=== PATIENT | male | born 1950 | race Caucasian/White ===

== ENCOUNTER 2018-05-12 09:03 | Day surgery (SDC) | payer MEDICARE ==
--- NOTE | 2018-04-24 15:04 | NUR ---
ON CHART REVIEW NOTED ABNORMAL EKG, AFIB WITH RVR. CONTACTED PT, PT STATES HE STOPPED COUMDAIN ON 04/20/2018 BUT DID NOT START LOVENOX STATED IN THE PLAN SENT OVER BY DR. SCHNEIDER. SPOKE WITH BECCA, INSULATOR TECHNICIAN PT CASE CANCELLED. DR. VANEGAS NOTIFIED, AGREED. PT NOTIFIED THAT CASE IS CANCELLED AND TO F/U WITH DR. GONSALES AND DR. SCHNEIDER.
[~2018-05-12] VITALS: Ht 172.7 cm; Wt 98.9 kg
--- NOTE | ~2018-05-12 | OR ---
[facility] [place] [facility] [address] [place], [place] [address] Draft DATE OF OPERATION: 05/12/2018 SURGEON: Bailey Stevenson MD PREOPERATIVE DIAGNOSIS: Right hydrocele. POSTOPERATIVE DIAGNOSIS: Right hydrocele. NAMES OF PROCEDURES: Right hydrocelectomy. ANESTHESIA: General with 10 mL of 0.25% lidocaine injection. DRAINS: None. SPECIMENS: Right hydrocele sac was sent to pathology for evaluation. ESTIMATED BLOOD LOSS: Minimal. COMPLICATIONS: None. INDICATIONS FOR PROCEDURE: Mr. Stephenson is a very pleasant 67-year-old gentleman, who presented to my Clinic a couple of months ago with complaints of progressively and enlarging swelling of the testicle. He was referred to me by Dr. Adilene Schneider after she ordered a testicular ultrasound, which did reveal the presence of a 6 x 7 cm simple right hydrocele. At the clinic visit, the patient requested surgical correction of the swelling. After discussion of the risks and benefits of the procedure including the risk of hemorrhage and damage to the surrounding structures, the patient agreed to proceed with the elective right hydrocelectomy. OPERATIVE FINDINGS: 1. On visual inspection of the external genitalia, the patient has a circumcised phallus PATIENT NAME: MARIBELL STEPHENSON OPERATIVE REPORT DATE OF : 52 REPORT #: [id number] PHYSICIAN: BAILEY STEVENSON MD PCP: ADILENE SCHNEIDER MD REPORT IS CONFIDENTIAL AND NOT TO BE RELEASED WITHOUT AUTHORIZATION [facility] [address] [place] [address] Draft with a glanular meatus. His testicles are descended bilaterally and are without palpable masses. The right hemiscrotum is enlarged, consistent with the presence of a hydrocele on the right side. 2. The right hydrocele was surgically corrected and a portion of the hydrocele sac was sent to pathology for confirmation. Approximately, 250 mL of straw-colored fluid was drained from the hydrocele sac. The edges of the hydrocele sac were sewn together behind the spermatic cord via the Jaboulay technique. DESCRIPTION OF PROCEDURE: After informed consent was obtained, the patient was taken back to the operating room. He was transferred from [facility] to the operating room table, where general anesthesia was induced. He was placed in the supine position and the genitalia prepped and draped in a sterile fashion. A marker was used to demarcate the median raphae and an approximately 5 cm transverse incision was made using a #15 blade into the right hemiscrotum. The incision was dissected down carefully using #15 blade along with judicious use of electrocautery. I dissected down to the level of the tunica vaginalis. I then manually dissected the tunica vaginalis away from the remaining layers of the dartos and was ultimately able to deliver the right testicle from the right hemiscrotum. Once I was satisfied all the cremasteric fibers had been removed from the tunica vaginalis. I made a small incision in to the tunica vaginalis and using a knife, and then drained the hydrocele fluid from the hydrocele sac. I performed a partial resection of the hydrocele sac, leaving a margin of about 1 to 2 cm. Care was taken not to injure the testicular vessels, epididymis, or ductus deferens. The edge of the hydrocele sac was then oversewn for hemostasis. The edges were sewn together behind the spermatic cord using the Jaboulay technique. All the while judicious use of electrocautery was used to establish and maintain hemostasis. The sac was successfully incised and the edges of the sac were sewn together using a 3-0 Vicryl in a continuous running fashion. Once I was satisfied that hemostasis had been achieved within the testicle and within the dartos fascia, I reinserted the testicle in the appropriate orientation into the right hemiscrotum. I then thoroughly irrigated the right hemiscrotum with sterile saline. With the testicle back into its proper position, I then closed the hemiscrotum in two layers. The dartos layer was closed in a continuous running fashion using 3-0 Vicryl. The superficial skin layer was closed in a simple interrupted fashion using 3-0 chromic. The area was cleaned and dried, and bacitracin was applied along with a dressing and scrotal fluffs/support. The procedure was then terminated. The patient tolerated the procedure well without any complication. He will now be transferred to the postanesthesia care unit in stable condition. DISPOSITION: I discussed the details of today's procedure with Mrs. Stephenson and answered all of her questions. Maribell will be discharged to home later today in stable condition once he recovers in the PACU. He will be sent home today with oral antibiotics for a total of 7 PATIENT NAME: MARIBELL STEPHENSON OPERATIVE REPORT DATE OF : 52 REPORT #: [id number] PHYSICIAN: BAILEY STEVENSON MD PCP: ADILENE SCHNEIDER MD REPORT IS CONFIDENTIAL AND NOT TO BE RELEASED WITHOUT AUTHORIZATION [address] [address] Draft days, along with [facility] 5/325, dispense #20 as needed for pain. He will be scheduled to return to Clinic in approximately 3 weeks for his first postoperative incision check. MD GERRY Marrufo/VINICIUSL /[id number] Copies: ~ PATIENT NAME: MARIBELL STEPHENSNO OPERATIVE REPORT DATE OF : 52 REPORT #: [id number] PHYSICIAN: BAILEY STEVENSON MD PCP: ADILENE SCHNEIDER MD REPORT IS CONFIDENTIAL AND NOT TO BE RELEASED WITHOUT AUTHORIZATION
[~2018-05-12 09:03] MED LIST: ALEVE220 M1; ASPIRIN EC325 MG PO; COUMADIN5 MG PO; METOPROLOL TAR100 MG PO; ROBAXIN-750750 MG PO; TRAMADOL HCL50 MG PO; WARFARIN SODIU2.5 MG PO; ZESTRIL20 MG PO
--- NOTE | 2018-05-12 12:51 | NUR ---
PT IS BACK TO FROM PACU. HE IS REPORTING MIMINAL PAIN IN THE RIGHT TESTICLE. WATER AT THE BEDSIDE TABLE. IS AT THE BEDSIDE. CALL LIGHT IS WITHIN REACH. NO OTHER C/O'S AT THIS TIME. WILL REASSESS WITHIN THE HOUR.
--- NOTE | 2018-05-12 13:07 | NUR ---
05/12/18 1307 Tianna Schmidt 1202 PT ARRIVED IN PACU SLEEPY WITH NO C/O'S. 1227 C/O BACK AND SCORTAL PAIN 4/10. MORPHINE 2MG GIVEN IVP. 1230 OXGYEN REMOVED. SATS 100% ON RA. 1238 PAIN DECREASED TO 3/10. MORPHINE 2MG GIVEN IVP. 1245 PT RESTING. REU.
--- NOTE | 2018-05-12 13:55 | NUR ---
PT HAS BEEN UP WALKING THE HALLS WITH HIS . HE STOPS IN THE RESTROOM AND WAS ABLE TO HAVE A BOWEL MOVEMENT AND URINATE. HE REPORTS HIS PAIN HAS SLIGHTLY INCREASED. HE HAS MET DC CRITERIA AT THIS TIME. DISCUSSING GOING HOME.
--- NOTE | 2018-05-12 14:31 | NUR ---
PT GIVEN DC INSTRUCTIONS AND VERBALIZES UNDERSTANDING. HE IS TAKEN TO VEHICLE IN , HE IS ABLE TO TRANSFER HIMSELF FROM WC TO CAR.
== END 2018-05-12 14:20 | disposition home or self-care (01) ==
LOC: DS 09:03 → OPS 09:03
PROVIDERS: Urology
PROC: 0VB60ZZ Excision of Right Tunica Vaginalis, Open Approach (ICD-10-PCS; principal; 2018-05-12 09:45)
DX: N43.3 Hydrocele, unspecified (principal); Z86.73 Personal history of transient ischemic attack (TIA), and cerebral infarction without residual deficits; Z87.891 Personal history of nicotine dependence; Z79.01 Long term (current) use of anticoagulants; Z79.899 Other long term (current) drug therapy
CPT/HCPCS: J0696; J1100; J2250; J2270; J2405; J3010; J7120

== ENCOUNTER 2020-07-26 07:35 | Day surgery (SDC) | payer MEDICARE ==
[~2020-07-26] VITALS: Ht 172.7 cm; Wt 95.5 kg
--- NOTE | ~2020-07-26 | OR ---
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 POSTOPERATIVE DIAGNOSIS: Mandibular cancer with open wound. PROCEDURE: Debridement, removal of bone and closure of oral mandibular wound. ANESTHESIA: General orotracheal. COMMUNITY SERVICE AIDE: Pierre. 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 He had a primary closure of the anterior mandibular wound. This initially healed well, but subsequently dehisced with exposed mandible and taken to the operating for the above-mentioned procedures. OPERATIVE PROCEDURE AND FINDINGS: After informed consent, the patient was taken to the operating room, placed in supine position where general orotracheal anesthesia was induced. The patient and procedure were verified. Exam of the oral cavity showed exposed mandible from about . The soft tissue had eschar. No obvious carcinoma. The periosteum was elevated off the mandible anteriorly and posteriorly. Mandibular bone was then drilled down to reduce the mandibular superior and inferior dimension. About a cm all across the mandible was removed to allow for tension-free closure. The wound was then closed with the tongue with 4-0 interrupted Vicryl. Minimal bleeding stopped afterwards. Pharynx was suctioned clear of blood secretions. Hemostasis was verified. The patient was then awakened, extubated, transported to the recovery room in good condition. No complications. BLOOD LOSS: Minimal. PATIENT NAME: MARIBELL FERNANDEZ OPERATIVE REPORT DATE OF : 52 REPORT #: [id number] PHYSICIAN: AMADO BOLES MD PCP: SANDRITA SCHNEIDER MD REPORT IS CONFIDENTIAL AND NOT TO BE RELEASED WITHOUT AUTHORIZATION [facility] [address] [place] [id number] [place] SPECIMEN: No specimen. DRAINS: No drains. Amado Boles MD GC/MARISSA /[id number] Copies: ~ PATIENT NAME: MARIBELL FERNANDEZ OPERATIVE REPORT DATE OF : 52 REPORT #: [id number] PHYSICIAN: AMADO BOLES MD PCP: SANDRITA SCHNEIDER MD REPORT IS CONFIDENTIAL AND NOT TO BE RELEASED WITHOUT AUTHORIZATION
[~2020-07-26 07:35] MED LIST changes: +ALEVE220 MG PO; +ASPIRIN325 MG PO; -COUMADIN5 MG PO; +DICLOFENAC35 MG; +KEFLEX500 MG PO; +LASIX20 MG; +PERCOCET 5-3251 EACH PO; +TYLENOL EXTRA500 MG PO; +WARFARIN SODIUM5 MG PO
[2020-07-26] MEDS ORDERED: DILTIAZEM ER60 MG PO (07:54)
[2020-07-26] MEDS ORDERED: CLINDAMYCIN HC300 MG PO (07:54)
--- NOTE | 2020-07-26 10:40 | NUR ---
07/26/20 1040 Anh Vargas 1019 PATIENT ARRIVES TO PACU RESTING WITH EYES CLOSED, OPENS EYES WITH VERBAL STIMULI, MOVES ALL EXTREMITIES, BACK TO SLEEP WHEN NOT STIMULATED. RESP EVEN AND UNLABORED, MASK AT 6 LITERS. 1025 PATIENT AWAKE OFF/ON. RESP EVEN AND UNLABORED, MASK CONTINUED AT 6 LITERS. PATIENT IS HYPERTENSIVE, SYDNIE HYDRAULIC SPINNER AWARE. PATIENT REPORTS TONGUE PAIN 4/10, ORDERS FOR IV TYLENOL. 1030 PATIENT HAS MODERATE AMOUNT OF BRIGHT RED BLOOD IN MOUTH AND ON FACE. FACE CLEANED, PATIENT DRINKING SIPS OF WATER. C/O BEING COLD, WARM BLANKETS AND KHALIDA PAWS ON. RESP EVEN AND UNLABORED, OXYGEN MASK OFF, ROOM AIR SATS >93%. 1035 PATIENT AWAKE. CONTINUES TO C/O TONGUE PAIN. RESP EVEN AND UNLABORED, ROOM AIR SATS >90%. PATIENT'S MOUTH SUCTIONED, MODERATE BRIGHT RED BLOOD NOTED IN MOUTH.
--- NOTE | 2020-07-26 11:21 | NUR ---
1110: PATIENT BACK IN DAY SURGERY ROOM FROM PACU. C/O PAIN 6/10 IN LEFT MOUTH AND TONGUE. DECLINES PAIN MEDICATION AT THIS TIME. BLOODY DRAINAGE SEEN IN MOUTH. PATIENT DENIES SWALLOWING LOTS OF BLOOD. PATIENT DOES NOT THINK THE SURGICAL SITE IS BLEEDING CONTINUOUSLY. IV SITE WNL. VS CHECKED. SCDs ON. CALL LIGHT WITHIN REACH. ICE WATER PLACED AT BEDSIDE.
--- NOTE | 2020-07-26 11:47 | EKG ---
[facility] [address] [facility] [place] [address] \T\ T wave abnormality, consider inferior ischemia ST \T\ T wave abnormality, consider anterolateral ischemia Abnormal ECG When compared with ECG of 30-MAR-2019 09:38, QRS axis shifted left T wave inversion now evident in Anterior leads Confirmed by ISIDORO LOW DO ([id number]) on 07/26/2020 11:47:42 AM Electronically Signed By: ISIDORO LOW DO 07/26/20 1147 PATIENT NAME: MARIBELL FERNANDEZ Electrocardiogram DATE OF : 52 PHYSICIAN: ISIDORO LOW DO REPORT #: [id number] REPORT IS CONFIDENTIAL AND NOT TO BE RELEASED WITHOUT AUTHORIZATION
--- NOTE | 2020-07-26 12:19 | NUR ---
1135: PATIENT ASSISTED OOB AND TO BATHROOM. UNSTEADY GAIT TO AND FROM BATHROOM. VOID WITHOUT DIFFICULTY. SCDs REPLACED. CALL LIGHT WITHIN REACH. 1210: PATIENT GIVEN BROTH PER REQUEST. AT BEDSIDE. CALL LIGHT WITHIN REACH.
--- NOTE | 2020-07-26 12:52 | NUR ---
PATIENT UP TO BATHROOM. GAIT STEADY. PATIENT NOW GETTING DRESSED WITH HELP FROM .
--- NOTE | 2020-07-26 16:09 | NUR ---
1308: PATIENT TOLERATED WATER AND CHICKEN BROTH. DISCHARGE INSTRUCTIONS GIVEN TO PATIENT AND . PATIENT AMBULATED OUT OF DEPARTMENT WITHOUT WAITING FOR WHEELCHAIR OR NURSE. PATIENT WAS TOLD HE WOULD BE TAKEN OUT TO CAR IN A WHEELCHAIR. NURSE CAUGHT UP WITH HIM [facility] DOWN MAIN HALLWAY OF HOSPITAL AND WALKED WITH HIM THE REST OF THE WAY TO HIS RIDE.
== END 2020-07-26 13:08 | disposition home or self-care (01) ==
LOC: OPS 07:35 → DS 07:35 → OPS 10:00
PROVIDERS: ATTEND Otolaryngology
PROC: 0NBT0ZZ Excision of Right Mandible, Open Approach (ICD-10-PCS; 2020-07-26)
PROC: 0NBV0ZZ Excision of Left Mandible, Open Approach (ICD-10-PCS; principal; 2020-07-26 10:00)
DX: C41.1 Malignant neoplasm of mandible (principal); F32.9 Major depressive disorder, single episode, unspecified; I10 Essential (primary) hypertension; I48.20 Chronic atrial fibrillation, unspecified; Z79.01 Long term (current) use of anticoagulants; Z88.8 Allergy status to other drugs, medicaments and biological substances; Z87.891 Personal history of nicotine dependence; Z79.899 Other long term (current) drug therapy
CPT/HCPCS: 93005; 93010; J0131; J0330; J1100; J2001; J2405; J2704; J3010; J7121

== ENCOUNTER 2022-05-08 11:54 | Emergency (ER) | payer MEDICARE ==
[~2022-05-08 11:54] MED LIST changes: +CLINDAMYCIN HC300 MG PO; +DILTIAZEM 24HR120 MG PO; +DILTIAZEM ER60 MG PO; +FUROSEMIDE20 MG PO; +GABAPENTIN300 MG PO
[2022-05-08] MEDS ORDERED: MAG-OXIDE400 MG PO (15:47)
== END 2022-05-08 16:05 | disposition home or self-care (01) ==
LOC: ED 11:54
DX: R29.898 Other symptoms and signs involving the musculoskeletal system (principal); F10.10 Alcohol abuse, uncomplicated; E83.42 Hypomagnesemia; I48.91 Unspecified atrial fibrillation; Z79.01 Long term (current) use of anticoagulants; Z86.73 Personal history of transient ischemic attack (TIA), and cerebral infarction without residual deficits; Z87.891 Personal history of nicotine dependence; Z79.899 Other long term (current) drug therapy
CPT/HCPCS: 36415; 70450; 80053; 80162; 83735; 85025; 85610; 96374; 99285-25; G0480; J3475

== ENCOUNTER 2022-09-06 08:11 | Inpatient (IN) | payer MEDICARE ==
[~2022-09-06] VITALS: Ht 172.7 cm; Wt 98.1 kg
[~2022-09-06 08:11] MED LIST changes: +FUROSEMIDE40 MG PO; +MAG-OXIDE400 MG PO; +POTASSIUM CHLO20 ME2 PO
--- NOTE | 2022-09-06 13:00 | NUR ---
ALANIS ARRIVED TO CCU ROOM 128. PATIENT TRANSFERED VIA SLIDER BOARD WITH 4 RN ASSIST. THIS RN IN TO ADMIT PATIENT WITH CUSTOMS VERIFIER AG TO DO SKIN ASSESSMENT.
--- NOTE | 2022-09-06 14:00 | NUR ---
PATIENT ARRIVED TO CCU WITH MULTIPLE WOUNDS UPON ARRIVAL. PATIENT HAS EXCORIATED BUTTOCKS WITH OPEN WOUNDS PRESENT. WILL PUT IN A WOUND CARE CONSULT. PATIENT HAS SCABS OVER HIS ENTIRE BODY. PATIENTS STATES "HE FALLS ALL THE TIME". PER PATIENTS PATIENT HAS FALLEN 3 TIMES A DAY RECENTLY. PATIENTS FOUND PATIENT ON THE FLOOR AGAIN THIS MORNING AND IS UNAURE HOW LONG HE WAS ON THE FLOOR TODAY. PER PATIENTS SHE IS STRUGLING TO CARE FOR PATIENT HERSELF AT HOME. PATIENTS IS HIS PRIMARY CAREGIVER. ONE SET OF SCABS ON PATIENTS RT HAND/WRIST IS FROM TOUCHING A HEATER AND PATIENT CONTINUES TO PICK AT SCABS. SCABS,SWELLING,REDNESS NOTED ON PATIENTS LEFT ARM. SCABS ON PATIENTS SHINS. SEE PATIETNS CHART FOR IMAGES. SCROTAL EDEMA NOTED. CASE MANAGEMENT NOTIFIED OF PATIENTS STATING SHE FEELS SHE CANT DO ALL HIS CARES FOR HIM. WILL CONTINUE TO CLOSELY MONITOR.
--- NOTE | 2022-09-06 15:20 | NUR ---
Spoke with pt and . answers questions as pt is mentally not clear. states they live in mobile home, it has a ramp. She states difficulty with pt falling and not being able to get out of the home. Pt was scheduled to start HH today, but came to the hospital. states she also thinks she received a call from [email or web address] today, but was unable to take as she came to the hospital with her spouse. She states pt uses a walker, shower chair, and has an ADA toilet. We discussed alcohol use and pt states he drinks 6 beers per day. He also states at one time he was drinking a 5th of mark per day. states she will no longer buy this. Conversation was difficult to follow as stating pt can get out of the home with a walker, but states she cannot take him out or leave him alone. She has her daughter sit with him when she can as he is unable to leave the home. States concern as pt has frequent falls. Pt does not want placement and wants to return to home. states she goes to her [employer]azdanism for food assist. Has used food bank. I encouraged the to call [email or web address] and complete the paper work as they can assist with food boxes, caregivers, and other services. states they will need to come to her, explained I don't believe they will do this. She will need to schedule an appt., find someone to stay with Noe, and go complete the paperwork if she wants their services.
--- NOTE | 2022-09-06 16:00 | NUR ---
THIS RN SPOKE WITH CASE MANAGEMENT AGAIN ABOUT PLAN OF CARE. CASE MANAGEMENT REVIEWED PLANS FOR DISCHARGE WITH PATIENT AND HIS .
--- NOTE | 2022-09-06 16:00 | NUR ---
Spoke with HH, they have pt scheduled to admit on Sat. HH referral was completed. If pt cannot dc on Saturday, they will attempt to admit on Saturday. If pt does not dc by Saturday, They do not have openings until the end of next week.
--- NOTE | 2022-09-06 16:30 | NUR ---
PATIENT RESTING IN BED. PATIENT DENIES ANY NEEDS AT THIS TIME. THIS RN HAS BEEN IN MULTIPLE TIMES TO TALK WITH PATIENT ABOUT PLAN OF CARE. PATIENTS STEPPED OUT FOR A COUPLE HOURS. WILL CONTINUE TO CLOSELY MONITOR.
--- NOTE | 2022-09-06 17:23 | NUR ---
Line drawn around redness on left forearm to watch and measure spreading of possible infection. Very warm to the touch, painful at the elbow. states she thinks he may have hit his elbow when we he fell today.
--- NOTE | 2022-09-06 17:28 | NUR ---
Patient requested toilet, up with walker and no slip socks. Incontinence episode in bed, immeasurable void. Patient cleaned up, barrier cream applied, brief applied, up in chair for dinner. Opened reddened areas noted on scrotum and groin, sensitive to cleaning. Barrier cream applied. Opened reddened areas noted on sacrum down to upper thights, sensitive to cleaning. Barrier cream applied. Continent bowel movement in the toilet, soft and brown.
--- NOTE | 2022-09-06 18:32 | NUR ---
THIS RN IN TO TALK WITH PATIENT AND HIS ABOUT PLAN OF CARE. PATIENT ASKED IF HE WAS GOING TO GET TO GO HOME TONIGHT. EDUCATED PATIENT THAT HE NEEDS TO STAY AND HAVE IV ABX AND WORK WITH PHYSICAL THERAPY TOMORROW. PATIENT AND HIS ARE AGREEABLE TO STAYING AND CONTINUING WITH TREATMENT. PATIENT SITTING UP IN THE CHAIR. PATIENT RING WAS REMOVED AND PATIENTS HAS AVAIABLE. PATIENTS ASSESSMENT COMPLETED AND REMAINS UNCHANGED FROM PRIOR ASSESSMENT. WILL CONTINUE TO CLOSELY MONTIOR.
--- NOTE | 2022-09-06 18:52 | NUR ---
PATIENT UP TO THE BATHROOM WITH 2 PERSON ASSIST. PATIENT ABLE TO FOLLOW COMMANDS. PATIENT IS IMPULSIVE AND TRIES TO WALK VERY QUICKLY. PATIENT IS A HIGH FALL RISK.
--- NOTE | 2022-09-06 20:00 | NUR ---
Bedside report received from outgoing nurse, BRUCE Figueroa. Initial assessment performed with no critical interventions necessary. All vital signs stable with no indication or complaints of pain. Patient's heart rhythm is afib with RVR with rates as high as 155. Nightly meds to be administered early. Patient cleaned with all linens changed. Affected right arm resting on pillows.
--- NOTE | 2022-09-06 22:05 | NUR ---
Patient's oxygen saturation dropping as low as 76 while asleep. 3L supplemental oxygen via nasla cannula applied to patient with improved oxygenation.
--- NOTE | 2022-09-07 | NUR ---
Repeat assessment performed with no acute change since previous assessment unless noted. All vital signs stable with patient still in afib rhythm. No complaints or indications of respiratory distress, fever or pain.
--- NOTE | 2022-09-07 01:30 | NUR ---
ASSISTED PATIENT TO USE URNAL IN BED. PATIENT IS FORGETFUL AND ATTEMPTING TO YELL OUT FOR ASSIST INSTEAD OF USING CALL LIGHT BUT IS EASLY REORIENTED TO THE CALL LIGHT. BED ALARM ACTIVE.
--- NOTE | 2022-09-07 02:00 | NUR ---
Patient watching television and fidgeting with surrounding items. Patient asked for beer and I reminded him that he would receive one with his meals. All vital signs stable.
--- NOTE | 2022-09-07 04:00 | NUR ---
Repeat assessment performed with no acute change since initial assessment unless noted. All vital signs stable with patient remaining in afib rhythm. No indications or complaints of respiratory distress, fever or pain. Will continue to monitor.
--- NOTE | 2022-09-07 06:00 | NUR ---
Patient awake and asking for breakfast and a beer. Dietary notified of patient's request. All vital signs stable with no indications of distress, fever or pain. Comfort measures provided.
--- NOTE | 2022-09-07 06:55 | NUR ---
Patient administered lopressor 5mg IV for heart rate trending above 155. Patient relaxing in bed watching television with no complaints of pain or distress.
--- NOTE | 2022-09-07 07:30 | NUR ---
REPORT RECIVED FROM GROUP LEADER RN. PATIENT RESTING IN BED AT THIS TIME. PATIENT NOTED TO BE PICKING AT SCABS AND UNWRAPPED HIS IV. REMINDED PATIENT TO NOT PICK HIS SCABS AND IV. PATIENT IS ALERT TO SELF AND KNOWS HE IS IN THE HOSPITAL, BUT IS FORGETFUL OF EVENTS, TIME, DATE, AND PLAN OF CARE. WILL REORIENT PATIENT NEEDED. WILL CONTINUE TO CLOSELY MONITOR.
--- NOTE | 2022-09-07 07:45 | EKG ---
[facility] [address] [place] [address] \T\ T wave abnormality, consider inferior ischemia ST \T\ T wave abnormality, consider anterolateral ischemia Abnormal ECG When compared with ECG of 26-JUL-2020 09:25, Sinus rhythm has replaced Atrial fibrillation Vent. rate has increased BY 65 BPM Confirmed by FRANK HAMPTON MD ([id number]) on 09/07/2022 7:44:45 AM Electronically Signed By: FRANK HAMPTON MD 09/07/22 0745 PATIENT NAME: MARIBELL FERNANDEZ Electrocardiogram DATE OF : 52 PHYSICIAN: FRANK HAMPTON MD REPORT #: [id number] REPORT IS CONFIDENTIAL AND NOT TO BE RELEASED WITHOUT AUTHORIZATION
--- NOTE | 2022-09-07 08:50 | NUR ---
PATIENT ASSESSMENT COMPLETED. PATIENT BREATH SOUNDS CLEAR. PATIENT ON 3L OVER NIGHT FOR APNEA EPISODES WITH DECREASE IN SPO2. OXYGEN REMOVED THIS AM NOW THAT PATIENT IS AWAKE AND SPO2 98%. RR- EVEN AND UNLABORED AT 22. BOWEL TONES ACTIVE. PATIENTS LEFT ARM IS LESS SWOLLEN THIS AM. SKIN IS MORE PINK VS RED. WILL CONTINUE TO ELEVATE EXTREMITY AND ENCOURAGE PATIENT TO NOT PICK HIS SCABS. PATIENT HAS MULTIPLE SCABS ALL OVER HIS BODY FROM FALLS AND THEN PICKING THEM. PATIENTS HR REMAINS ELEVATED. ORAL PILLS GIVEN APPROX 1 HOUR AGO. MD AT THE BEDSIDE AND IS AWARE OF PATIENTS HR.PATIENT UP TO THE BATHROOM WITH HR 170. NO NEW ORDERS AT THIS TIME. PATIENT DOES DENIES SOB, DIZZINESS, OR PALPITATIONS. WILL CONTINUE TO CLOSELY MONITOR.
--- NOTE | 2022-09-07 09:31 | NUR ---
Pharmacy in to review medications with patient and his . and patient express knowledge deficit in medication administration. states the order for Gabapentin 300mg tid is not followed, medication is used as a PRN with patient taking 1-3 capsules (300-900mg) at a time depending on how his level of pain. states 1 capsule doesn't help the patient's pain much but 3 capsules makes him "zonked". Patient finished IV antibiotic Rocephin at 0933 and asked why he is taking antibiotics. This student RN reaffirmed the patient was taking antibiotics for the cellulitis in his arm. Patient forgot his arm was sore. Will continue to monitor.
[2022-09-07] MEDS ORDERED: TYLENOL325 MG PO (10:19)
[2022-09-07] MEDS ORDERED: ASPIR-TRIN325 MG PO (10:19)
--- NOTE | 2022-09-07 10:21 | NUR ---
MED REC COMPLETE
--- NOTE | 2022-09-07 11:50 | NUR ---
This RN and student RN Estefania in with patient to shave his face with the electric shaver and then patient in to shower. Patient tolerated well.Linen changed. Patient now resting in the chair waiting for lunch. Will continue to clsoely monitor.
--- NOTE | 2022-09-07 13:17 | NUR ---
THIS RN ASSISTED PATIENT BACK TO BED AFTER LUNCH. PATIENT ATE WELL. PATIENTS AT THE BEDSIDE. PATIENT NOW RESTING AT THIS TIME. CURTAIN OPEN FOR PATIENTS SAFETY. WILL CONTINUE TO CLOSELY MONITOR.
--- NOTE | 2022-09-07 14:52 | NUR ---
CODY FROM [facility] CALLED TO STATE THAT IF PATIENT IS NOT DISCHARGED EARLY SATURDAY MORNING AND CAN NOT MAKE THE SATURDAY MORNING ADMIT, THE NEXT ADMIT WILL BE SATURDAY. CODY FROM [facility] WOUND LIKE TO BE CALLED SATURDAY WITH A DISCHAGRE UPDATE.
--- NOTE | 2022-09-07 15:30 | NUR ---
PHYSICAL THERAPY IN TO WORK WITH PATIENT. PATIENT TOLERATING WELL. THIS RN GAVE REPORT TO RILEY BARRERA FROM [facility] AT THIS TIME. PATIENT WILL TRANSFER TO ROOM 121. PATIENT UPDATED ON PLAN OF CARE. WILL CONTINUE TO CLOSELY MONITOR.
--- NOTE | 2022-09-07 16:00 | NUR ---
REPORT RECEIVED FROM CCU RN AND PT ARRIVED VIA BED. PT. IS PLEASANT AND ORIENTED TO SELF. MEDS ADMIN. CALL LIGHT IN REACH. ALARM ON
--- NOTE | 2022-09-07 16:05 | NUR ---
THIS RN AND RILEY BARRERA TRANSFERED PATIENT TO [facility] VIA BED. CONFIRMED WITH MD HAMPTON PATIENT MAY HAVE 1-2 BEERS WITH MEALS TO PREVENT PATIENT FROM GOING THROUGH ALCOHOL WITHDRAWLS. UPDATED RILEY BARRERA. NO OTHER QUESTIONS AT THIS TIME.
--- NOTE | 2022-09-07 16:40 | NUR ---
PT. ASKS FOR ASSISTANCE GETTING PT. TO BATHROOM. PT. INSISTS ON URINATING IN BATHROOM. PT. BECAME UNSTEADY SITTING DOWN AND ASSISTED. WHEN AMBULATING TO BED PT. TRIPPED AND ATTEMPTED TO GRAB THIS NURSE. PT. CAUGHT AND ASSISTED BACK TO BED. HE WAS BROUGHT A FWW AND LEFT WITH ALARM ON. CHARGE UPDATED.
--- NOTE | 2022-09-07 16:55 | NUR ---
WOUND CARE CONSULT COMPLETED. PT WITH REDNESS AND EXCORIATION TO BUTTOCK, PICTURE IN CHART. WOUND CLEANSED, CAVILON ADVANCED SKIN BARRIER APPLIED TO ENTIRE WOUND AND REDDENED AREA, SACRAL ALLEVYN AND 2 SQUARE ALLEVYN FOAM DRESSINGS APPLIED TO EXCORIATED AND OPEN AREAS. DISCUSSED WOUND ACRE WITH . PT NOW SITTING ON EDGE OF BED EATING DINNER.
--- NOTE | 2022-09-07 19:38 | NUR ---
RECEIVED REPORT FROM DAY SHIFT RN. PATIENT IS RESTING IN BED WITH EYES CLOSED, RR 16. CALL LIGHT IN REACH. BED ALARM ON FOR SAFETY.
--- NOTE | 2022-09-07 20:21 | NUR ---
PLACED CALL TO MD WITH CONCERN OF ELEVATED HR. NO NEW ORDERS AT THIS TIME.
--- NOTE | 2022-09-07 21:03 | NUR ---
PATIENT ASSESMENT COMPLETED. PATIENT IS AGITATED AND CONFUSED. THIS RN ATTEMPTED TO REORIENT PATIENT. PATIENT REMAINS CONFUSED AT THIS TIME. PATIENTS CIWA IS 5. PATIENTS PM MEDS GIVEN PER ORDER. PATIENT CONTINUES TO HAVE ELEVATED HR, PRN MED GIVEN PER ORDER. PATIENT PROVIDED A BEER PER REQUEST. PATIENTS IVS X2 REDRESSED AND SL PER ORDER. PATIENT GIVEN PRN SLEEP AID PER PATIENT REQUEST. PATIENT DENIES ANY FURTHER NEEDS. CALL LIGHT IN REACH. BED ALARM ON FOR TV. PATIENT PLACED GLASSES ON TO WATCH TV. PATIENT PROVIDED TV REMOTE.
--- NOTE | 2022-09-07 21:45 | NUR ---
PATIENTS BED ALARM ALERTING STAFF. PATIENT ASSISTED TO THE BR A 1PA W/FWWW. PATIENT ABLE TO VOID. PATIENT BACK IN BED RESTING. PATIENT DENIES ANY FURTHER NEEDS. PATIENT REMAINS DISORIENTED. THIS RN ATTEMPTED TO REORIENT. CALL LIGHT IN REACH. BED ALARM ON FOR SAFETY.
--- NOTE | 2022-09-08 00:03 | NUR ---
PATIENT IS RESTING IN BED WITH EYES CLOSED, RR 19. CALL LIGHT IN REACH. BED ALARM ON FOR SAFETY.
--- NOTE | 2022-09-08 02:39 | NUR ---
ASSISTED PATIENT TO THE BR A 1PA W/FWW. PATIENT UNABLE TO VOID. PATIENT HAD SUSTAINED HR OVER 120. PATIENT ALSO REQUESTING A BEER. SPOKE TO MD. MD PLACED ORDER FOR PRN BEER. UPDATED MD ON INCREASED HR, NO NEW ORDERS, PRN MED GIVEN PER EMAR. PATIENT IS RESTING IN BED DRINKING HIS BEER. PATIENT DENIES ANY NEEDS. CALL LIGHT IN REACH. BED ALARM ON FOR SAFETY.
--- NOTE | 2022-09-08 03:15 | NUR ---
PATIENTS BED ALARM ALERTED STAFF. PATIENT ASSISTED TO THE BR A 1PA W/FWW. PATIENT ABLE TO VOID SMALL AMOUNT. PATIENT IS BACK IN BED RESTING. NO FURTHER NEEDS NOTED. CALL LIGHT IN REACH. BED ALARM ON FOR SAFETY.
--- NOTE | 2022-09-08 04:24 | NUR ---
PATIENT IS RESING IN BED WITH EYES CLSOED, RR 17. CALL LIGHT IN REACH. BED ALARM ON FOR SAFETY.
--- NOTE | 2022-09-08 05:34 | NUR ---
LAB PRESENT IN THE ROOM. VITALS TAKEN AND RECORDED. INTAKE AND OUTPUT RECORDED. PATIENT ABLE TO STATE TOWN, HOSPITAL, AND MONTH. PATIENT UNABLE TO STATE YEAR OR TODAYS DATE. PATIENT DENIES ANY NEEDS. CALL LIGHT IN REACH. BED ALARM ON FOR SAFETY.
--- NOTE | 2022-09-08 07:24 | NUR ---
PATIENTS HR SUSTAINED OVER 130. PRN MED GIVEN PER ORDER.
--- NOTE | 2022-09-08 07:30 | NUR ---
RECIEVED SHIFT REPORT. PT USING URINAL AT BEDSIDE WITH BRUCE HOLGUIN. HR IN THE 140'S WHILE AT REST. CALL LIGHT WITHIN REACH. BED ALARM ON
--- NOTE | 2022-09-08 09:00 | NUR ---
MORNING ASSESSMENT COMPLETE. PT SITTING IN RECLINER, AT BEDSIDE. PT IV X2 DC'D DUE TO LEAKING. NEW IV PLACED. ABX HANGING. LEFT ARM REMAINS PINK ADN WARM TO THE TOUCH. MD AT BEDSIDE DISCUSSING POC. DENIES ANY DISCOMFORTS AT THIS TIME. CALL LIGHT WITHIN REACH. CHAIR ALARM ON.
--- NOTE | 2022-09-08 09:30 | NUR ---
AT NURSES STATION STATES PT IS EXPERIENCING PAIN IN THE LEFT ARM. PAIN LEVEL 9/10, PRN PAIN MEDICATION ADMINISTERED (PER EMAR).
--- NOTE | 2022-09-08 10:05 | NUR ---
ABX HANGING AT THIS TIME. PT IN BED RESTING, EYES CLOSED, BREATHING EVEN AND UNLABORED. BED ALARM ON. CALL LIGHT WITHIN REACH
--- NOTE | 2022-09-08 11:21 | NUR ---
PT AMBULATED TO THE BATHROOM, 1PA, FWW W/O DIFFICULTY. IN RECLINER, CHAIR ALARM ON, CALL LIGHT WITHIN REACH
--- NOTE | 2022-09-08 13:25 | NUR ---
PT SITTING IN RECLINER, AT BEDSIDE. DENIES PAIN AT THIS TIME. CALL LIGHT WITHIN REACH. CHAIR ALARM ON
--- NOTE | 2022-09-08 14:03 | NUR ---
PATIENT IN CHAIR AFTER MEAL. VITALS AND I/O'S COMPLETED. CHAIR ALARM ON. CALL LIGHT WITHIN REACH.
--- NOTE | 2022-09-08 14:20 | NUR ---
PT AMBULATED TO THE BATHROOM W/O DIFFICULY 1PA, FWW. THIS RN IN ROOM TO ASSIST
--- NOTE | 2022-09-08 14:45 | NUR ---
AFTERNOON ASSESSMENT COMPLETE. NO NEW CHANGES SINCE MORNING ASSESSMENT. LEFT ARM ELEVATED ON TWO PILLOWS. BED ALARM ON. CALL LIGHT WITHIN REACH.
--- NOTE | 2022-09-08 17:01 | NUR ---
PT REQUESTED TO USE BATHROOM, 1PA, FWW W/O DIFFICULTY. AT BEDSIDE. THIS RN IN ROOM TO ASSIST.
--- NOTE | 2022-09-08 19:00 | NUR ---
ASSUMED CARE OF PT UPON RECEIVING SHIFT REPORT FROM DAY NURSE. PT SITTING UP IN BED, ALERT, ORIENTED X3, NAD. PT C/O H/A. WILL MEDICATE PER MAR, CONTINUE TO MONITOR AND FOLLOW POC.
--- NOTE | 2022-09-09 03:49 | NUR ---
NOTIFIED PROVIDER PT HAS BEEN OLIGURIC WITH FREQUENCY AND URGENCY THIS SHIFT. PT REPORTS NO ABDOMINAL TENDERNESS, NO BLADDER PAIN. I/O CHARTED. ORDERS REC'D. URINE SPECIMEN COLLECTED AND SENT TO LAB. WILL CONTINUE TO MONITOR AND FOLLOW POC.
--- NOTE | 2022-09-09 07:08 | NUR ---
RECIEVED SHIFT REPORT. PT IN RECLINER, AWAKE. LEFT ARM ELEVATED ON TWO PILLOWS. CALL LIGHT WITHIN REACH. BED ALARM ON.
--- NOTE | 2022-09-09 07:35 | NUR ---
RECIEVED SHIFT REPORT. PT RESTING IN BED, EYES CLOSED, BREATHING EVEN AND UNLABORED. O2 IN PLACE. CALL LIGHT WITHIN REACH.
--- NOTE | 2022-09-09 08:20 | NUR ---
MORNING ASSESSMENT COMPLETE. PT IN RECLINER WITH AT BESIDE EATING BREAKFAST. DENIES PAIN. LEFT EXT 3+ EDEMA, BILAT LOWER 2+. DENIES FURTHER NEEDS. CALL LIGHT WITHIN REACH. CHAIR ALARM ON
--- NOTE | 2022-09-09 08:32 | NUR ---
PT IN RECLINER, AT BEDSIDE. ABX HANGING AT THIS TIME. CALL LIGHT WITHIN REACH. CHAIR ALARM ON
--- NOTE | 2022-09-09 11:04 | NUR ---
PT FELT NEED TO USE BATHROOM, BUT ABLE TO VOID. PT IN RECLINER, FEET ELEVATED, LEFT ARM ELEVATED. CALL LIGHT IN REACH. CHAIR ALARM ON
--- NOTE | 2022-09-09 14:44 | NUR ---
PT SITTING IN RECLINER. AND VISITORS AT BEDSIDE. CALL LIGHT WITHIN REACH. CHAIR ALARM ON.
--- NOTE | 2022-09-09 15:00 | NUR ---
AFTERNOON ASSESSMENT COMPLETE. NO NEW CHANGES SINCE MORNING ASSESSMENT. CALL LIGHT WITHIN REACH. ALARM ON.
--- NOTE | 2022-09-09 15:43 | NUR ---
pt in recliner, used restroom was able to void. chair alarm interventional radiology technologist light within reach
--- NOTE | 2022-09-09 16:14 | NUR ---
CHAIR ALARM WENT OFF, PT COULDNT REMEMBER WHY HE STOOD UP. PT LAYING IN BED, BED ALARM ON. CALL LIGHT WITHIN REACH. REORIENTED PT EVALUATION SPECIALIST LIGHT USE
--- NOTE | 2022-09-09 17:05 | NUR ---
WRAPPED PT LEFT ARM WITH MIKE WRAP PER MD ORDER.
--- NOTE | 2022-09-09 17:52 | NUR ---
PT IN BED. VS AND I/OS DONE. BED ALARM ON. CALL LIGHT WITHIN REACH.
--- NOTE | 2022-09-09 21:30 | NUR ---
NOTIFIED PROVIDER THAT PATIENT REMAINS CONFUSED, AND UNABLE TO COMPLY WITH FALL PRECAUTIONS, HAVING VERY FREQUENT EPISODES OF URINARY FREQUENCY, URGENCY AND HESISTANCY, WELL INTERMITTENT INCONTINENCE, USUALLY IN THE FLOOR HE IS ATTEMPTING TO GET TO THE RESTROOM. PT FEELS HE CANNOT EMPTY HIS BLADDER, BUT HAS HAD NO MORE THAN 200ML POST VOID RESIDUAL ON BLADDER SCAN. PT IS ATTEMPTING TO EXIT THE BED TO GO TO THE RESTROOM EVERY 10-15 MINUTES. BED EXIT ALARM IS ACTIVATED, BUT PT IS FREQUENTLY ALREADY SITTING ON THE SIDE OF THE BED TRYING TO GET UP BY THE TIME STAFF ARE ABLE TO ARRIVE TO THE BEDSIDE. PT ATTEMPTS TO GET UP WHETHER HIS WALKER IS AT BEDSIDE OR NOT. PT IS UNSTEADY ON HIS FEET, UNCOORDINATED AT TIMES, FORGETS TO USE WALKER AT TIMES. PT IS WEARING NON-SKID SOCKS. THE INCONTINENT EPISODES PREVENT ACCURATE RECORD OF I/O IN THIS PATIENT WHO IS BEING W/U FOR CHF AND HAS BEEN DIURESING. PT ALSO CURRENTLY HAS OPEN WOUNDS TO BUTTOCKS.IN ADDITION, THIS RN UNABLE TO ADMINISTER ORDERED MEDICATION ON SCHEDULE D/T REPEATED TRIPS TO THE ROOM FOR PATIENT GETTING OUT OF BED AND STAYING WITH PATIENT WHILE PATIENT IS TOILETING, AND CLEANING INCONTINENCE. DRUG SAFETY DATA MANAGEMENT SPECIALIST AND SOIL CONSERVATIONIST AWARE AND ALSO ASSISTING WITH FREQUENT AND CLOSE OBSERVATION. PT ROOM IS DIRECTLY IN FRONT OF NURSE STATION. HAS A H/O FREQUENT FALLS AND IS ON A BLOOD THINNER. REQUESTED PROVIDER ASSESSMENT OF INDICATION FOR NELSON CATHETER INSERTION TO RELIEVE THESE FACTORS INCLUDING FEELINGS OF URINARY URGENCY AND BEING UNABLE TO EMPTY BLADDER. NO ORDER FOR NELSON CATHETER REC'D. NEW MED ORDERS REC'D. WILL MEDICATE PER MAR, CONTINUE CLOSE AND FREQUENT MONITORING AND TOILETING REGIMEN, AND FOLLOW POC.
--- NOTE | 2022-09-09 21:35 | NUR ---
LATE ENTRY: ON PHONE CALL TO PROVIDER AT 2130, NOTIFIED PROVIDER THAT PT HR CONTINUES TO SUSTAIN 120s-140s. NO ORDERS RECEIVED. WILL CONTINUE CLOSE, FREQUENT MONITORING AND FOLLOW POC.
--- NOTE | 2022-09-09 21:55 | NUR ---
MD PLACED NEW ORDER FOR MEDICATION. UNABLE TO GET MEDICATION AT THIS TIME. PLACED CALL TO MD. TO PLACE NEW ORDER.
--- NOTE | 2022-09-10 06:00 | NUR ---
PT SLEPT NO MORE THAN 2 HOURS, SPACED OUT THROUGH THE NIGHT DUE TO URINARY URGENCY AND FREQUENCE. MD AWARE THAT PT IS UNABLE TO VOID MORE OFTEN THAN NOT. WILL ENDORSE TO DAY NURSE FOR CLOSE FREQUENT MONITORING PT IS VERY IMPULSIVE AND CONFUSED AND WILL NOT REMEMBER TO USE CALL CUBA. PT UP TO CHAIR. CHAIR EXIT ALARM IN PLACE, NONSKID SOCKS AND FALLS ARMBAND IN USE. PT BELONGINGS NEARBY. PT WEARING GLASSES AND HEARING AID TO ENHANCE COMMUNICATION.
--- NOTE | 2022-09-10 06:31 | NUR ---
PT WAVING IN ROOM. PT REQ BATHROOM NEEDS. PT ASSISTED UP TO BATHROOM 1 PA FWW. PT BACK TO CHAIR. I SUPERVISOR [employer] NOTICE SKIN ABRASION ON HAND. RN NOTIFIED. NO FURTHER NEEDS. CHAIR ALARM SET. CALL LIGHT WITHIN REACH
--- NOTE | 2022-09-10 06:42 | NUR ---
PT SLEEPING IN CHAIR. CHAIR EXIT ALARM ARMED. VSS, NAD, NO C/O. WILL CONTINUE CLOSE FREQUENT MONITORING AND FOLLOW POC UNTIL SHIFT HANDOFF REPORT WITH DAY NURSE.
--- NOTE | 2022-09-10 07:37 | NUR ---
PT UP IN THE CHAIR WATCHING SPORTS ON TV AT TIME OF SHIFT REPORT. CALL LIGHT IN REACH CHAIR ALARM SET, NEEDED ITEMS IN REACH. PT DENIES NEEDS OF
--- NOTE | 2022-09-10 07:51 | NUR ---
PATIENT SITTING UP IN CHAIR WATCHING TV AT THIS TIME. WHITE BOARD UPDATED. CALL LIGHT IN REACH. CHAIR ALARM ON. NO FURTHER NEEDS AT THIS TIME.
--- NOTE | 2022-09-10 08:57 | NUR ---
OVER TO PATIENT ROOM, MARQUISE NOLAN AT BEDSIDE ASSISTING PATIENT BACK TO BED. AT BEDSIDE. PER PETAR DESK MANAGER PATIENT TO HAVE LIVER US AND ECHO TODAY. WILL FOLLOW UP WITH PATIENT AFTER STUDIES ARE COMPLETE.
[2022-09-10] MEDS ORDERED: TAMSULOSIN HCL0.4 MG PO (10:38)
[2022-09-10] MEDS ORDERED: CEPHALEXIN500 MG PO (10:38)
[2022-09-10] MEDS ORDERED: TROSPIUM CHLORI20 MG PO (10:39)
[2022-09-10] MEDS ORDERED: DILTIAZEM 24HR240 M1 PO (10:40)
== END 2022-09-10 12:20 | disposition home health service (06) | DRG 602 ==
LOC: ED 08:11 → CCU 10:54 → MS 10:54
PROVIDERS: ADMIT Internal Medicine; ATTEND Internal Medicine
DX: L03.114 Cellulitis of left upper limb (principal); J13 Pneumonia due to Streptococcus pneumoniae; E46 Unspecified protein-calorie malnutrition; I48.91 Unspecified atrial fibrillation; F10.20 Alcohol dependence, uncomplicated; N40.0 Benign prostatic hyperplasia without lower urinary tract symptoms; Z20.822 Contact with and (suspected) exposure to COVID-19; G89.29 Other chronic pain; M54.9 Dorsalgia, unspecified; E83.42 Hypomagnesemia; Z68.31 Body mass index [BMI] 31.0-31.9, adult; Z87.891 Personal history of nicotine dependence; Z86.73 Personal history of transient ischemic attack (TIA), and cerebral infarction without residual deficits; Z98.890 Other specified postprocedural states; Z79.01 Long term (current) use of anticoagulants; Z79.899 Other long term (current) drug therapy
CPT/HCPCS: 36415; 51701; 71045; 76705; 80048; 80053; 80076; 81003; 82140; 83605; 83735; 84443; 85025; 85610; 87040; 87502; 93005; 93010; 93306; 94760; 97116; 97162; 97530; 99285-25; A9270; C9803; G0480; J0456; J0696; J3475; J7030; J7060; J7121; U0003

== ENCOUNTER 2022-09-14 22:59 | Emergency (ER) | payer MEDICARE ==
[~2022-09-14] VITALS: Ht 172.7 cm; Wt 98.0 kg
[~2022-09-14 22:59] MED LIST changes: +ASPIR-TRIN325 MG PO; +CEPHALEXIN500 MG PO; +DILTIAZEM 24HR240 M1 PO; +TAMSULOSIN HCL0.4 MG PO; +TROSPIUM CHLORI20 MG PO; +TYLENOL325 MG PO
--- OUTSIDE RECORDS SUMMARY | 2022-09-14 23:02 | XMS ---
PreManage Notification: MARIBELL FERNANDEZ Security Equipment Application Specialist Events No recent Security Events currently on file CRITERIA MET - [facility] - 2 Visits in 30 Days CARE PROVIDERS SANDRITA SCHNEDIER [facility] 10/28/2017-Current PHONE: Unknown Azul has no Care Guidelines for this patient. [place] VISIT COUNT (12 MO.) 3 [facility] TOTAL 3 NOTE: Visits indicate total known visits. ED/C VISIT TRACKING (12 MO.) 09/14/2022 23:00 [facility] [place] TYPE: Emergency COMPLAINT: - SOB 09/06/2022 08:13 [facility] [place] TYPE: Emergency COMPLAINT: - SKIN PROBLEM 05/08/2022 11:55 [facility] [place] TYPE: Emergency COMPLAINT: - FALL DIAGNOSES: - Other jail (current) drug therapy - Personal history of nicotine dependence - senior care (current) use of anticoagulants - Other symptoms and signs involving the musculoskeletal system - Personal history of transient ischemic attack (TIA), and cerebral infarction without residual deficits - Alcohol abuse, uncomplicated - Hypomagnesemia - Unspecified atrial fibrillation INPATIENT VISIT TRACKING (12 MO.) 09/06/2022 10:[address] [facility] [place] TYPE: Medical Surgical COMPLAINT: - ATRIAL FIBRILLATION, CELLULITIS, PNEUMONIA DIAGNOSES: - Contact with and (suspected) exposure to COVID-19 - Personal history of transient ischemic attack (TIA), and cerebral infarction without residual deficits - Body mass index [BMI] 31.0-31.9, adult - Pneumonia due to Streptococcus pneumoniae - Dorsalgia, unspecified - Other termite control technician (current) drug therapy - Unspecified protein-calorie malnutrition - Personal history of nicotine dependence - Other specified postprocedural states - Benign prostatic hyperplasia without lower urinary tract symptoms - Cellulitis of left upper limb - Hypomagnesemia - senior care (current) use of anticoagulants - Other chronic pain - Alcohol dependence, uncomplicated - Unspecified atrial fibrillation [email or web address]
[2022-09-15] MEDS ORDERED: ULTRAM50 MG PO (01:27)
[2022-09-15] MEDS ORDERED: LASIX20 MG PO (01:28)
--- NOTE | 2022-09-16 12:29 | EKG ---
[facility] [address] [place] [address] Signed Atrial fibrillation with slow ventricular response Nonspecific ST and T wave abnormality Abnormal ECG No previous ECGs available Confirmed by Sarai Clark MD () on 09/16/2022 12:28:56 PM Electronically Signed By: SARAI CLARK MD 09/16/22 1229 PATIENT NAME: MARIBELL FERNANDEZ Electrocardiogram DATE OF : 52 PHYSICIAN: SARAI CLARK MD REPORT #: [id number] REPORT IS CONFIDENTIAL AND NOT TO BE RELEASED WITHOUT AUTHORIZATION
== END 2022-09-15 01:45 | disposition home or self-care (01) ==
LOC: ED 22:59
DX: S22.42XA Multiple fractures of ribs, left side, initial encounter for closed fracture (principal); E87.5 Hyperkalemia; R60.0 Localized edema; I48.91 Unspecified atrial fibrillation; Z86.73 Personal history of transient ischemic attack (TIA), and cerebral infarction without residual deficits; Z87.891 Personal history of nicotine dependence; Z79.899 Other long term (current) drug therapy; Z79.01 Long term (current) use of anticoagulants; Z79.82 Long term (current) use of aspirin; W19.XXXA Unspecified fall, initial encounter
CPT/HCPCS: 36415; 70450; 71250; 72125; 80053; 83880; 85025; 85610; 93005; 93010; 94640; 96374; 96375; 99284-25; A9270; J0610; J1940; J2405

== ENCOUNTER 2022-12-13 16:04 | Emergency (ER) | payer MEDICARE, OTHER ==
[~2022-12-13] VITALS: Ht 172.7 cm; Wt 99.7 kg
[~2022-12-13 16:04] MED LIST changes: +CEFPODOXIME PR200 MG PO; +LASIX20 MG PO; +METOPROLOL SUC100 MG PO; +ULTRAM50 MG PO
--- OUTSIDE RECORDS SUMMARY | 2022-12-13 16:06 | XMS ---
PreManage Notification: MARIBELL FERNANDEZ Security Legal Billing Analyst Events No recent Security Events currently on file CRITERIA MET - [facility] - 2 Visits in 30 Days CARE PROVIDERS -[place]- Dentist: Traveling Inventory Associate [facility] PHONE: [phone] SANDRITA SCHNEIDER [facility] 10/28/2017-Current PHONE: Unknown Azul has no Care Guidelines for this patient. [place] VISIT COUNT (12 MO.) [address] [place] [address] TOTAL 6 NOTE: Visits indicate total known visits. ED/UCC VISIT TRACKING (12 MO.) 12/13/2022 16:05 [facility] TYPE: Emergency COMPLAINT: - WEAKNESS 12/07/2022 20:03 [facility] TYPE: Emergency COMPLAINT: - WEAKNESS 11/14/2022 02:05 [facility] TYPE: Emergency COMPLAINT: - WEAKNESS,SOB 09/14/2022 23:00 [facility] TYPE: Emergency COMPLAINT: - SOB DIAGNOSES: - Hyperkalemia - Localized edema - custodial (current) use of anticoagulants - custodial (current) use of aspirin - Multiple fractures of ribs, left side, initial encounter for closed fracture - Other intermediate manager (current) drug therapy - Personal history of nicotine dependence - Personal history of transient ischemic attack (TIA), and cerebral infarction without residual deficits - Shortness of breath - Unspecified atrial fibrillation - Unspecified fall, initial encounter 09/06/2022 08:13 [facility] TYPE: Emergency COMPLAINT: - SKIN PROBLEM 05/08/2022 11:55 [facility] TYPE: Emergency COMPLAINT: - FALL DIAGNOSES: - Alcohol abuse, uncomplicated - Hypomagnesemia - custodial (current) use of anticoagulants - Other intermediate manager (current) drug therapy - Other symptoms and signs involving the musculoskeletal system - Personal history of nicotine dependence - Personal history of transient ischemic attack (TIA), and cerebral infarction without residual deficits - Unspecified atrial fibrillation INPATIENT VISIT TRACKING (12 MO.) 12/07/2022 20:04 [facility] [place] TYPE: Observation COMPLAINT: - GENERALIZED WEAKNESS,ACUTE URINARY RETENTION,CHF 11/14/2022 02:06 [facility] TYPE: Observation COMPLAINT: - CHF EXAC,PNEUMONIA,ANACARCA,CHRONIC AFIB,ANTICOAG DIAGNOSES: - Acute respiratory failure with hypoxia - Alcohol use, unspecified, uncomplicated - Chronic atrial fibrillation, unspecified - Contact with and (suspected) exposure to COVID-19 - Heart failure, unspecified - Hypo-osmolality and hyponatremia - Hypomagnesemia - jaundice, unspecified - Pneumonia, unspecified organism - Presence of alcohol in blood, level not specified 09/06/2022 10:54 [facility] [place] TYPE: Medical Surgical COMPLAINT: - ATRIAL FIBRILLATION, CELLULITIS, PNEUMONIA DIAGNOSES: - Alcohol dependence, uncomplicated - Alcohol dependence, uncomplicated - Benign prostatic hyperplasia without lower urinary tract symptoms - Benign prostatic hyperplasia without lower urinary tract symptoms - Body mass index [BMI] 31.0-31.9, adult - Body mass index [BMI] 31.0-31.9, adult - Cellulitis of left upper limb - Contact with and (suspected) exposure to COVID-19 - Contact with and (suspected) exposure to COVID-19 - Dorsalgia, unspecified - Dorsalgia, unspecified - Hypomagnesemia - Hypomagnesemia - equipment operator intermodal yard (current) use of anticoagulants - equipment operator intermodal yard (current) use of anticoagulants - Other chronic pain - Other chronic pain - Other intermediate manager (current) drug therapy - Other detention (current) drug therapy - Other specified postprocedural states - Other specified postprocedural states - Personal history of nicotine dependence - Personal history of nicotine dependence - Personal history of transient ischemic attack (TIA), and cerebral infarction without residual deficits - Personal history of transient ischemic attack (TIA), and cerebral infarction without residual deficits - Pneumonia due to Streptococcus pneumoniae - Pneumonia due to Streptococcus pneumoniae - Unspecified atrial fibrillation - Unspecified atrial fibrillation - Unspecified protein-calorie malnutrition - Unspecified protein-calorie malnutrition [email or web address]
[2022-12-13] MEDS ORDERED: MAGNESIUM400 MG PO (16:20)
[2022-12-14 15:43] VITALS: BP 134/79
--- NOTE | 2022-12-15 21:56 | EKG ---
[facility] [address] [place] [address] Signed Atrial fibrillation Rightward axis Anterior infarct , age undetermined ST \T\ T wave abnormality, consider lateral ischemia Abnormal ECG When compared with ECG of 07-DEC-2022 20:40, Anterior infarct is now present Confirmed by Sarai Clark MD () on 12/15/2022 9:56:31 PM Electronically Signed By: SARAI CLARK MD 12/15/22 2156 PATIENT NAME: MARIBELL FERNANDEZ Electrocardiogram DATE OF : 52 PHYSICIAN: SARAI CLARK MD REPORT #: [id number] REPORT IS CONFIDENTIAL AND NOT TO BE RELEASED WITHOUT AUTHORIZATION
== END 2022-12-14 15:43 | disposition home or self-care (01) ==
LOC: ED 16:04
DX: R53.1 Weakness (principal); I48.91 Unspecified atrial fibrillation; Z87.891 Personal history of nicotine dependence; Z79.899 Other long term (current) drug therapy; Z79.01 Long term (current) use of anticoagulants
CPT/HCPCS: 36415; 71045; 80053; 81001; 83735; 84484; 85025; 85610; 93005; 93010; 97162; 99285-25; G0480

== ENCOUNTER 2022-12-28 06:58 | Emergency (ER) | payer MEDICARE, OTHER ==
[~2022-12-28] VITALS: Ht 172.7 cm; Wt 99.3 kg
[~2022-12-28 06:58] MED LIST changes: +MAGNESIUM400 MG PO
--- OUTSIDE RECORDS SUMMARY | 2022-12-28 07:01 | XMS ---
PreManage Notification: MARIBELL FERNANDEZ Security Lsw Events No recent Security Events currently on file CRITERIA MET - 6 ED Visits in 6 Months - [facility] - 2 Visits in 30 Days CARE PROVIDERS -[place]- Dentist: [facility] PHONE: [phone] SANDRITA SCHNEIDER [facility] 10/28/2017-Current PHONE: Unknown Azul has no Care Guidelines for this patient. [place] VISIT COUNT (12 MO.) [address] [place] [address] TOTAL 8 NOTE: Visits indicate total known visits. ED/UCC VISIT TRACKING (12 MO.) 12/28/2022 06:[address] [facility] [place] TYPE: Emergency COMPLAINT: - FAILURE TO THRIVE 12/25/2022 09:43 [facility] TYPE: Emergency COMPLAINT: - DISCOMFORT DIAGNOSES: - Constipation, unspecified - intermediate teacher (current) use of anticoagulants - [facility] (current) use of aspirin - Other [facility] (current) drug therapy - Personal history of nicotine dependence - Personal history of transient ischemic attack (TIA), and cerebral infarction without residual deficits - Weakness 12/13/2022 16:05 [facility] [place] TYPE: Emergency COMPLAINT: - WEAKNESS DIAGNOSES: - intermediate teacher (current) use of anticoagulants - Other superintendent marine oil terminal (current) drug therapy - Personal history of nicotine dependence - Unspecified atrial fibrillation - Weakness 12/07/2022 20:03 [facility] [place] TYPE: Emergency COMPLAINT: - WEAKNESS 11/14/2022 02:05 [facility] TYPE: Emergency COMPLAINT: - WEAKNESS,SOB 09/14/2022 23:00 [facility] TYPE: Emergency COMPLAINT: - SOB DIAGNOSES: - Hyperkalemia - Localized edema - [facility] (current) use of anticoagulants - intermediate teacher (current) use of aspirin - Multiple fractures of ribs, left side, initial encounter for closed fracture - Other [facility] (current) drug therapy - Personal history of [...] - Alcohol abuse, uncomplicated - Hypomagnesemia - intermediate teacher (current) use of anticoagulants - Other superintendent marine oil terminal (current) drug therapy - Other symptoms and signs involving the musculoskeletal system - Personal history of nicotine dependence - Personal history of transient ischemic attack (TIA), and cerebral infarction without residual deficits - Unspecified atrial fibrillation INPATIENT VISIT TRACKING (12 MO.) 12/07/2022 20:04 [facility] [place] TYPE: Observation COMPLAINT: - GENERALIZED WEAKNESS,ACUTE URINARY RETENTION,CHF DIAGNOSES: - Alcohol dependence, uncomplicated - Benign prostatic hyperplasia with lower urinary tract symptoms - Chronic diastolic (congestive) heart failure - Contact with and (suspected) exposure to COVID-19 - Mild cognitive impairment of uncertain or unknown etiology - Other retention of urine - Spinal stenosis, lumbar region with neurogenic claudication - Unspecified atrial fibrillation 11/14/2022 02:06 [facility] [place] TYPE: Observation [...] Dorsalgia, unspecified - Hypomagnesemia - Hypomagnesemia - intermediate teacher (current) use of anticoagulants - intermediate teacher (current) use of anticoagulants - Other chronic pain - Other chronic pain - Other superintendent marine oil terminal (current) drug therapy - Other superintendent marine oil terminal (current) drug therapy - Other specified postprocedural [...] Unspecified protein-calorie malnutrition - Unspecified protein-calorie malnutrition [email or web address]
[2022-12-28 10:45] VITALS: BP 112/75
--- NOTE | 2022-12-28 19:55 | EKG ---
[facility] [address] [facility] [place] [address] Signed Atrial fibrillation with rapid ventricular response ST \T\ T wave abnormality, consider inferior ischemia ST \T\ T wave abnormality, consider anterolateral ischemia Abnormal ECG When compared with ECG of 13-DEC-2022 16:58, Criteria for Anterior infarct are no longer present Confirmed by Sarai Clark MD () on 12/28/2022 7:55:04 PM Electronically Signed By: SARAI CLARK MD 12/28/221954 PATIENT NAME: MARIBELL FERNANDEZ Electrocardiogram DATE OF : 52 PHYSICIAN: SARAI CLARK MD REPORT #: [id number] REPORT IS CONFIDENTIAL AND NOT TO BE RELEASED WITHOUT AUTHORIZATION
== END 2022-12-28 10:45 | disposition home or self-care (01) ==
LOC: ED 06:58
DX: R53.1 Weakness (principal); I48.91 Unspecified atrial fibrillation; Z87.891 Personal history of nicotine dependence; Z79.899 Other long term (current) drug therapy; Z79.01 Long term (current) use of anticoagulants
CPT/HCPCS: 36415; 80053; 85025; 85610; 93005; 93010; 99285-25; G0480

== ENCOUNTER 2022-12-30 14:05 | Emergency (ER) | payer MEDICARE, OTHER ==
[~2022-12-30] VITALS: Ht 172.7 cm; Wt 99.7 kg
--- OUTSIDE RECORDS SUMMARY | 2022-12-30 14:07 | XMS ---
PreManage Notification: MARIBELL FERNANDEZ Security Vice President Medical Affairs Events No recent Security Events currently on file CRITERIA MET - 6 ED Visits in 6 Months - [facility] - 2 Visits in 30 Days CARE PROVIDERS -Bernardo- Dentist: Securities Sales Associate [facility] PHONE: [phone] SANDRITA SCHNEIDER [facility] 10/28/2017-Current PHONE: Unknown Azul has no Care Guidelines for this patient. Genaro VISIT COUNT (12 MO.) [address] [place] [address] TOTAL 9 NOTE: Visits indicate total known visits. ED/UCC VISIT TRACKING (12 MO.) 12/30/2022 14:05 [facility] [place] TYPE: Emergency COMPLAINT: - URINE PROBLEM 12/28/2022 06:59 [facility] [place] TYPE: Emergency COMPLAINT: - FAILURE TO THRIVE 12/25/2022 09:43 [facility] [place] TYPE: Emergency COMPLAINT: - DISCOMFORT DIAGNOSES: - Constipation, unspecified - intermediate (current) use of anticoagulants - intermediate frame tender (current) use of aspirin - Other chcf (current) drug therapy - Personal history of nicotine dependence - Personal history of transient ischemic attack (TIA), and cerebral infarction without residual deficits - Weakness 12/13/2022 16:05 [facility] [place] TYPE: Emergency COMPLAINT: - WEAKNESS DIAGNOSES: - intermediate (current) use of anticoagulants - Other intermediate frame tender (current) drug therapy - Personal history of nicotine dependence - Unspecified atrial fibrillation - Weakness 12/07/2022 20:03 [facility] [place] TYPE: Emergency COMPLAINT: - WEAKNESS 11/14/2022 02:05 [facility] [place] TYPE: Emergency COMPLAINT: - WEAKNESS,SOB 09/14/2022 23:00 [facility] [place] TYPE: Emergency COMPLAINT: - SOB DIAGNOSES: - Hyperkalemia - Localized edema - intermediate frame tender (current) use of anticoagulants - intermediate (current) use of aspirin - Multiple fractures of ribs, left side, initial encounter for closed fracture - Other chcf (current) drug therapy - Personal history of [...] Alcohol abuse, uncomplicated - Hypomagnesemia - intermediate frame tender (current) use of anticoagulants - Other chcf (current) drug therapy - Other symptoms and [...] in blood, level not specified 09/06[facility]2022 10:[facility] [place] [facility] COMPLAINT: - [...] unspecified - Hypomagnesemia - Hypomagnesemia - intermediate frame tender (current) use of anticoagulants - intermediate frame tender (current) use of anticoagulants - Other chronic pain - Other chronic pain - Other intermediate frame tender (current) drug therapy - Other chcf (current) drug therapy - Other specified postprocedural [...] Unspecified protein-calorie malnutrition - Unspecified protein-calorie malnutrition [email or web address]
[2022-12-30 16:10] VITALS: BP 106/66
== END 2022-12-30 16:05 | disposition home or self-care (01) ==
LOC: ED 14:05
DX: R31.9 Hematuria, unspecified (principal); Z86.73 Personal history of transient ischemic attack (TIA), and cerebral infarction without residual deficits; Z87.891 Personal history of nicotine dependence; Z79.899 Other long term (current) drug therapy; Z79.01 Long term (current) use of anticoagulants; Z79.82 Long term (current) use of aspirin
CPT/HCPCS: 51702; 81001; 87088; 99283-25

== ENCOUNTER 2023-05-12 15:19 | Inpatient (IN) | payer MEDICARE, OTHER ==
[~2023-05-12] VITALS: Ht 172.7 cm; Wt 90.0 kg
--- OUTSIDE RECORDS SUMMARY | ~2023-05-12 | XMS | Continuity of Care Document ---
Demographics + + + | Address | [address] | | | [place] [address] | + + + | Preferred Language | Unknown | + + + | Marital Status | | + + + | Gnosticism Affiliation | Unknown | + + + | Race | White | + + + | Ethnic Group | Not or | + + + Author + + + | Author | [facility] | + + + | Organization | [facility] | + + + | Address | [address] | | | [place], [place] [address] | + + + | Phone | | + + + Care Team Providers + + + + | Care Metal Solderer Name | Role | Phone | + + + + Unavailable | Unavailable | + + + + Allergies No information. Encounters No information. Functional Status No information. Immunizations No information. Medications No information. Problems + + + + | date | description | facility | + + + + | 2023-04-04 07:36 | OTHER SPECIFIED | [facility] | | | DEGENERATIVE DISEASES OF | | | | NERVOUS S | | + + + + | 2023-04-04 07:36 | OTHER SPECIFIED DISEASES | [facility] | | | OF SPINAL CORD | | + + + + | 2023-04-04 07:36 | FUSION OF SPINE, CERVICAL | [facility] | | | REGION | | + + + + | 2023-04-04 07:36 | SPONDYLOSIS W/O MYELOPATHY | [facility] | | | OR RADICULOPATHY, CERVI | | + + + + | 2023-04-04 07:36 | SPONDYLOSIS W/O MYELOPATHY | [facility] | | | OR RADICULOPATHY, THORA | | + + + + | 2023-04-04 07:36 | SPINAL STENOSIS, CERVICAL | [facility] | | | REGION | | + + + + | 2023-04-04 07:36 | SPINAL STENOSIS, THORACIC | [facility] | | | REGION | | + + + + | 2023-04-04 07:36 | 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, HIGH CERVICAL | | | | RE | | + + + + | 2023-04-04 07:36 | 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 | | | | | | + + + + | 2023-04-04 07:36 | 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, THORACIC R | | + + + + | 2023-04-04 07:36 | OTH SYMPTOMS AND SIGNS | [facility] | | | INVOLVING THE MUS | | + + + + | 2023-04-04 07:36 | OTH SYMPTOMS AND SIGNS | [facility] | | | INVOLVING THE | | | | MUSCULOSKELETAL SYSTEM | | + + + + | 2023-04-04 07:36 | WHITE MATTER DISEASE, | [facility] | | | UNSPECIFIED | | + + + + | 2023-04-04 08:00 | OTH SYMPTOMS AND SIGNS | [facility] | | | INVOLVING THE MUS | | + + + + | 2023-04-05 07:33 | SPINAL STENOSIS, LUMBAR | [facility] | | | REGION WITHOUT NEUROGENIC | | + + + + | 2023-04-05 07:33 | 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, LUMBAR REG | | + + + + | 2023-04-05 07:33 | OTH SYMPTOMS AND SIGNS | [facility] | | | INVOLVING THE MUS | | + + + + | 2023-04-05 07:33 | OTH SYMPTOMS AND SIGNS | [facility] | | | INVOLVING THE | | | | MUSCULOSKELETAL SYSTEM | | + + + + | 2023-04-05 07:33 | OTHER SPECIFIED | [facility] | | | POSTPROCEDURAL STATES | | + + + + | 2023-04-05 08:00 | OTH SYMPTOMS AND SIGNS | [facility] | | | INVOLVING THE MUS | | + + + + | 2023-04-12 12:33 | OTHER DISORDER OF | [facility] | | | CIRCULATORY SYSTEM | | + + + + | 2023-04-12 12:33 | OTH SYMPTOMS AND SIGNS | [facility] | | | INVOLVING THE MUS | | + + + + | 2023-04-12 12:33 | OTH SYMPTOMS AND SIGNS | [facility] | | | INVOLVING THE | | | | MUSCULOSKELETAL SYSTEM | | + + + + | 2023-04-12 15:00 | OTH SYMPTOMS AND SIGNS | [facility] | | | INVOLVING THE MUS | | + + + + Procedures No information. Results/Labs No information. Social History +--------+ + + | date | description | facility | +--------+ + + Vital Signs No information."
--- OUTSIDE RECORDS SUMMARY | ~2023-05-12 | XMS | Continuity of Care Document ---
Demographics + + + | Address | [address] | | | [place] [address] | + + + | Preferred Language | Unknown | + + + | Marital Status | | + + + | Hoahaoism Affiliation | Unknown | + + + | Race | White | + + + | Ethnic Group | Not or | + + + Author + + + | Author | [facility] | + + + | Organization | [facility] | + + + | Address | [address] | | | [place], [place] [address] | + + + | Phone | | + + + Care Team Providers + + + + | Care Actuarial Director Name | Role | Phone | + [...]
--- OUTSIDE RECORDS SUMMARY | 2023-05-12 15:23 | XMS ---
PreManage Notification: MARIBELL FERNANDEZ Security Trauma Surgeon Events No recent Security Events currently on file CRITERIA MET - 6 ED Visits in 6 Months - [facility] CARE PROVIDERS Mary Zhang Surveying Technician/Seed Specialist 01/10/2023-Current PHONE: [phone] SANDRITA SCHNEIDER [facility] 10/28/2017-Current PHONE: Unknown -Bernardo- Dentist: Cane Burner [facility] PHONE: [phone] JAMIE SAEZ Nurse Practitioner: Family Current PH[facility]: [phone] [facility] Current PHONE: Unknown Azul has no Care Guidelines for this patient. Genaro VISIT COUNT (12 MO.) 11 TAYA D[facility]az TOTAL 11 NOTE: Visits indicate total known visits. ED/UCC VISIT TRACKING (12 MO.) 05/12/2023 15:19 [facility] [place] TYPE: Emergency 01/06/2023 12:33 [facility] TYPE: Emergency COMPLAINT: - HEMATURIA DIAGNOSES: - Chronic atrial fibrillation, unspecified - Fall on same level, unspecified, initial encounter - Hematuria, unspecified - detention (current) use of anticoagulants - detention (current) use of aspirin - Other longterm (current) drug therapy - Personal history of nicotine dependence - Urinary tract infection, site not specified 01/02/2023 10:27 [facility] [place] TYPE: Emergency COMPLAINT: - FALL DIAGNOSES: - Encounter for examination and observation following other accident - predatory animal exterminator (current) use of anticoagulants - Other fall from one level to another, initial encounter - Other longterm (current) drug therapy - Personal history of nicotine dependence - Personal history of transient ischemic attack (TIA), and cerebral infarction without residual deficits - Pressure ulcer of left buttock, unspecified stage - Pressure ulcer of right buttock, unspecified stage 12/30/2022 14:05 [facility] [place] TYPE: Emergency COMPLAINT: - URINE PROBLEM DIAGNOSES: - Hematuria, unspecified - detention (current) use of anticoagulants - predatory animal exterminator (current) use of aspirin - Other termite exterminator (current) drug therapy - Personal history of nicotine dependence - Personal history of transient ischemic attack (TIA), and cerebral infarction without residual deficits 12/28/2022 06:59 [facility] [place] TYPE: Emergency COMPLAINT: - FAILURE TO THRIVE DIAGNOSES: - detention (current) use of anticoagulants - Other termite exterminator (current) drug therapy - Personal history of nicotine dependence - Unspecified atrial fibrillation - Weakness 12/25/2022 09:43 [facility] [place] TYPE: Emergency COMPLAINT: - DISCOMFORT DIAGNOSES: - Constipation, unspecified - detention (current) use of anticoagulants - predatory animal exterminator (current) use of aspirin - Other longterm (current) drug therapy - Personal history of nicotine dependence - Personal history of transient ischemic attack (TIA), and cerebral infarction without residual deficits - Weakness 12/13/2022 16:05 [facility] [place] TYPE: Emergency COMPLAINT: - WEAKNESS DIAGNOSES: - detention (current) use of anticoagulants - Other longterm (current) drug therapy - Personal history of nicotine dependence - Unspecified atrial fibrillation - Weakness 12/07/2022 20:03 [facility] [place] TYPE: Emergency COMPLAINT: - WEAKNESS 11/14/2022 02:05 [facility] [place] TYPE: Emergency COMPLAINT: - WEAKNESS,SOB 09/14/2022 23:00 [facility] [place] TYPE: Emergency COMPLAINT: - SOB DIAGNOSES: - Hyperkalemia - Localized edema - detention (current) use of anticoagulants - detention (current) use of aspirin - Multiple fractures of ribs, left side, initial encounter for closed fracture - Other longterm (current) drug therapy - Personal history of nicotine dependence - Personal history of transient ischemic attack (TIA), and cerebral infarction without residual deficits - Shortness of breath - Unspecified atrial fibrillation - Unspecified fall, initial encounter 09/06/2022 08:13 [facility] [place] TYPE: Emergency COMPLAINT: - SKIN PROBLEM INPATIENT VISIT TRACKING (12 MO.) 12/07/2022 20:04 [...] Dorsalgia, unspecified - Hypomagnesemia - Hypomagnesemia - predatory animal exterminator (current) use of anticoagulants - detention (current) use of anticoagulants - Other chronic pain - Other chronic pain - Other termite exterminator (current) drug therapy - Other termite exterminator (current) drug therapy - Other specified postprocedural [...] Unspecified protein-calorie malnutrition - Unspecified protein-calorie malnutrition [email or web address]
[2023-05-12 15:39] LABS: BASOPHILS 0.2 % (0-2); HEMATOCRIT 40.9 % (35.0-50.0); HEMOGLOBIN 13.6 g/dL (12.0-18.0); LYMPHOCYTES 3.4 % (24-44); MCH 29.6 (27-36); MCHC 33.2 g/dl (30-36); MCV 89.1 fl (81-99); MONOCYTES 2.9 % (0-12); NEUTROPHILS 93.5 % (39-80); PLATELET COUNT 197 K/uL (140-440); RBC 4.58 M/ul (4.3-5.7); RDW 16.3 (10.5-15.0)
[2023-05-12] MEDS ORDERED: DULOXETINE HCL30 MG PO (15:44)
[2023-05-12] MEDS ORDERED: ONDANSETRON ODT4 MG PO (15:46)
[2023-05-12] MEDS ORDERED: OXYCODONE HCL5 MG PO (15:46)
[2023-05-12] MEDS ORDERED: ELIQUIS5 MG PO (15:51)
[2023-05-12] MEDS ORDERED: METOCLOPRAMIDE10 MG PO (15:51)
[2023-05-12] MEDS ORDERED: MIRTAZAPINE7.5 MG PO (15:52)
[2023-05-12 15:55] LABS: ALBUMIN/GLOBULIN RATIO 0.75 (1.1-2.4); ANION GAP 17.9 (7-21); BILIRUBIN, TOTAL 2.1 ng/dL (0.2-1.0); BUN/CREATININE RATIO 14.28 (6.0-28.6); CALCIUM 9.7 mg/dL (8.5-10.1); CREATININE, SERUM 2.59 mg/dL (0.70-1.30); POTASSIUM 4.9 mmol/L (3.5-5.1)
[2023-05-12 16:29] LABS: INFLUENZA B NAA NEGATIVE (NEGATIVE); RESPIRATORY SYNCYTIAL VIR NAA NEGATIVE (NEGATIVE)
[2023-05-12 17:34] LABS: BILIRUBIN, URINE NEGATIVE (negative); BLOOD/HGB, URINE LARGE (Negative); KETONE, URINE TRACE (Negative)
[2023-05-12 17:35] LABS: COLLECTION TYPE, URINE CLEAN CATCH; LEUK ESTERASE, URINE POSITVE (negative); NITRITE, URINE NEGATIVE (negative); PH, URINE 8 (5-7)
[2023-05-12 17:50] LABS: INR 2.03 (0.80-1.30); PROTIME 22.2 Sec (11.2-14.2)
[2023-05-12 17:53] LABS: EPITHELIAL CELLS, URINE 0 /lpf (0-1+); WHITE BLOOD CELLS, URINE 21-40 /HPF (0-5)
[2023-05-12 17:54] LABS: BACTERIA, URINE 3+ /hpf (negative); CRYSTALS, URINE AMORPHOUS PHOSPH 1+ (0-1+)
[2023-05-12 17:55] LABS: CASTS, URINE NONE SEEN \\lpf; REFLEX CULTURE, URINE Yes (No)
[2023-05-12 21:11] VITALS: BP 102/55
--- NOTE | 2023-05-12 21:30 | NUR ---
PATIENT ARRIVED TO THE FLOOR VIA STRETCHER. PATIENT ASSISTED BY STAFF TO MOVE FROM STRETCHER TO BED. PATIENTS VITALS TAKEN AND RECORDED. INTAKE AND OUTPUT RECORDED. PATIENT DENIES ANY PAIN. PATIENT HAS NELSON IN PLACE. PATIENT ORIENTED TO SELF. PATIENTS IV INFUSING PER ORDER. RESIDENCE SUPERVISOR COMPLETED ADMISSION. PATIENT ASSESMENT COMPLETED. PATIENTS COCYX HAS REDDENED AREA ALLEVYN APPLIED. PATIENT HAS DRY SKALY SKIN. PATIENT HAS NOTED DEFICITS IN ALL EXT SEE RN ASSESMENT. [facility] RN REMAINS IN ROOM.
--- NOTE | 2023-05-12 21:46 | EKG ---
[facility] [address] [place] [address] Signed Atrial fibrillation with rapid ventricular response Anteroseptal infarct (cited on or before 13-DEC-2022) Abnormal ECG When compared with ECG of 06-JAN-2023 12:57, Questionable change in initial forces of Anterior leads T wave inversion no longer evident in Lateral leads Confirmed by Sarai Clark MD () on 05/12/2023 9:46:22 PM Electronically Signed By: SARAI CLARK MD 05/12/23 2146 PATIENT NAME: MARIBELL FERNANDEZ Electrocardiogram DATE OF : 52 PHYSICIAN: SARAI CLARK MD REPORT #: [id number] REPORT IS CONFIDENTIAL AND NOT TO BE RELEASED WITHOUT AUTHORIZATION
[2023-05-12 22:16] LABS: ANION GAP 17.8 (7-21); BUN/CREATININE RATIO 15.25 (6.0-28.6); CREATININE, SERUM 2.36 mg/dL (0.70-1.30); POTASSIUM 4.8 mmol/L (3.5-5.1)
--- NOTE | 2023-05-12 23:22 | NUR ---
PATIENT IS SITTING UP IN BED. RN AT BEDSIDE FEEDING PATIENT.
--- NOTE | 2023-05-13 01:09 | NUR ---
PATIENT REPOSITIONED. PATIENTS NELSON HAS NO OUTPUT. PATIENT BLADDER SCANNED FOR 646ML. THIS RN REMOVED 24ML FROM NELSON BALLON AND ADVANCED NELSON. MILKY RED CONCENTRATED URINE BEGAN TO DRAIN FROM NELSON. 20ML PLACED BACK IN BALLON. NELSON STAT LOCK PLACED ON PATIENT. NELSON RETURNED 750ML. PATIENT DENIES ANY FURTHER NEEDS. CALL LIGHT IN REACH.
[2023-05-13 02:01] VITALS: BP 107/57
--- NOTE | 2023-05-13 02:39 | NUR ---
PATIENT REPOSITIONED IN BED AND FLOATED ON PILLOWS. PATIENT PROVIDED SIPS OF WATER. PATIENTS VITALS TAKEN AND RECORDED. NELSON EMPTIED. PATIENTS INTAKE AND OUTPUT RECORDED. IV INFUSING PER ORDER. CALL LIGHT IN REACH.
--- NOTE | 2023-05-13 04:14 | NUR ---
PATIENT REPOSITIONED IN BED. PATIENTS FLOEY DRAINING. PATIENTS IV INFUSING. NO NEEDS NOTED. CALL LIGHT IN REACH.
[2023-05-13 05:28] VITALS: BP 105/60
[2023-05-13 05:58] LABS: BASOPHILS 0.3 % (0-2); EOSINOPHILS 0.3 % (0-6); LYMPHOCYTES 3.1 % (24-44); MCH 29.7 (27-36); MCHC 33.3 g/dl (30-36); MCV 89.3 fl (81-99); MONOCYTES 3.6 % (0-12); NEUTROPHILS 92.7 % (39-80); PLATELET COUNT 132 K/uL (140-440); RBC 3.69 M/ul (4.3-5.7); RDW 16.7 (10.5-15.0)
[2023-05-13 06:11] LABS: ALBUMIN 2.3 g/dL (3.4-5.0); ALBUMIN/GLOBULIN RATIO 0.7 (1.1-2.4); ANION GAP 13.2 (7-21); BILIRUBIN, TOTAL 1.4 ng/dL (0.2-1.0); BUN/CREATININE RATIO 15.27 (6.0-28.6); CALCIUM 8.4 mg/dL (8.5-10.1); CREATININE, SERUM 2.03 mg/dL (0.70-1.30); INR 2.17 (0.80-1.30); MAGNESIUM 1.4 mg/dL (1.8-2.4); POTASSIUM 4.2 mmol/L (3.5-5.1); PROTEIN, TOTAL 5.6 g/dL (6.4-8.2); PROTIME 23.5 Sec (11.2-14.2)
--- NOTE | 2023-05-13 06:31 | NUR ---
PATIENT HAS NOTED BLOODY DRAINGE FROM CATHERTER INSERTION SITE. EDER CARE AND NELSON CARE COMPLETED. ANOTHER 5ML ADDED TO CATHERTER BALLON. PATIENT NOW HAS 25ML IN BALLON. PATIENTS VITALS TAKEN AND RECORDED. NELSON EMPTIED. PATIENT HAD SMALL BM. PATIENTS INTAKE AND OUTPUT RECORDED. SIPS OF WATER PROVIDED. PATIENT DENIES ANY PAIN. PATIENTS IV INFUSING PER ORDER. PATIENT DENIES ANY FURTHER NEEDS. CALL LIGHT AND BELONGINGS ARE WITHIN REACH.
--- NOTE | 2023-05-13 07:11 | NUR ---
PT REPORT RECEIVED FROM BRUCE HOUSER. PT AWAKENS TO SOUND OF DOOR SLIDING OPEN. DARK RED URINE NOTED IN CATH BAG, AND LEAKING AROUND CATHETER WELL THIRD PORT OF CATHETER. EDER PADS PLACED AROUND CATHETER AND PORT TO HELP PREVENT LEAKING ONTO THE SKIN. PT SEEMS TO HAVE MUSCLE TWITCHING IN HIS LEFT LEG. CALL LIGHT IN REACH, HOWEVER, PT DOES NOT HAVE FUNCTION OF HIS UPPER EXTREMITIES.
--- NOTE | 2023-05-13 08:50 | NUR ---
IN WITH PT FOR ASSESSMENT. PT RESTING IN BED WITH EYES CLOSED BUT AWAKENS EASILY TO VOICE. AT BEDSIDE WITH AN . IVF RUNNING AT 125/HR. BP 97/64 (71), P160, R28, T98 TEMPORAL, 97.9 ORAL, SPO2 94% ON ROOM AIR. PT TURNED TO LEFT SIDE. PT'S REPORTS PT HAS SLEEP APNEA, AFIB. CALL LIGHT IN REACH.
[2023-05-13] MEDS ORDERED: FIBERCON1 TABLET PO (08:57)
--- NOTE | 2023-05-13 08:58 | NUR ---
PC TO DR. CLARK, ADVISED HIM OF PT'S VS AND CONCERN FOR TACHY AFIB AT 160.
[2023-05-13] MEDS ORDERED: FUROSEMIDE40 MG PO (08:59)
[2023-05-13] MEDS ORDERED: MAGOX 400400 MG PO (08:59)
[2023-05-13] MEDS ORDERED: METOPROLOL SUCC50 MG PO (09:01)
[2023-05-13] MEDS ORDERED: OXYCODONE HCL5 MG PO (09:02)
[2023-05-13] MEDS ORDERED: DILTIAZEM 24HR240 M1 PO (09:06)
[2023-05-13] MEDS ORDERED: TIZANIDINE HCL2 MG PO (09:34)
[2023-05-13] MEDS ORDERED: GABAPENTIN100 MG PO (09:35)
[2023-05-13 10:17] VITALS: BP 96/54
--- NOTE | 2023-05-13 11:10 | NUR ---
IN WITH PT FOR UPDATED MED ADMINISTRATION PER EMAR. 1L NS BOLUS RUNNING, MG RIDER STARTED, PO MEDS ADMINISTERED AND PT ABLE TO SWALLOW WITHOUT DIFFICULTY. PT DECLINES ANY FOOD AT THIS TIME. WILL OFFER FOOD AGAIN LATER.
--- NOTE | 2023-05-13 12:30 | NUR ---
CATH CARE, EDER CARE PERFORMED BY THIS RN AND VERONIQUE ALDANA. PLUG PLACED INTO 3RD CATH PORT AND SECURED WITH SPONGE TAPE, NOTED BLOOD AT URINARY MEATUS. ADDED 5ML TO BALLOON TO MAKE A TOTAL OF 30ML (LIMIT) TO HELP DECREASE LEAKING. TURNED PT TO PERFORM EDER CARE AND NOTED EVOLVING DEEP TISSUE PRESSURE INJURY, CURRENTLY AT PARTIAL THICKNESS TO THE COCCYX, NOTED ALSO BY BRUCE SINGH. NOTED AN ALLYVN JUST INFERIOR TO THIS AREA. THIS WAS REMOVED AND THE AREA WAS CLEANSED WITH WIPES AND BARRIER WIPES, ALLOWED TO AIR DRY, AND LEFT OPEN TO AIR AT THIS TIME. REQUESTED AN ORDER FOR DESITIN AND DESENEX FOR THIS AREA AND THE AREAS OF PT'S SKIN WHERE [facility] NURSES HAD BEEN TREATING WITH ANTIFUNGAL POWDER PER PT'S . WAFFLE MATTRESS PLACED UNDERNEATH PT ON THE BED AND PT FLOATED TO HIS RIGHT SIDE WITH TWO PILLOWS, HOB AND KNEES ELEVATED TO A POSITION OF COMFORT. PARTIAL BED BATH COMPLETED AT THIS TIME ALSO. AT BEDSIDE AND WILL FEED THE PT IF HE CHOOSES TO EAT. HE DID NOT EAT ANY OF HIS BREAKFAST. PT'S STATES HE DID ENJOY ENSURES AT [facility], SO AN ENSURE WAS BROUGHT TO HER TO GIVE TO HIM WELL. FEVER HAS DROPPED FROM 102.7 TO 101.3 AT THIS TIME.
[2023-05-13 13:35] VITALS: BP 99/49
--- NOTE | 2023-05-13 14:00 | NUR ---
Spoke with Brittany and she states pt has been living at [facility]. He has cont. to decline and can no longer walk since october of this year. Pt is a beryl lift and essentially bed bound. Pt is unable to answer questions at my visit and Brittany states he has been confused with his UTI. Plan is for pt to return to [facility] on dc when medically cleared. Pt has assist from [facility]. denies financial issues or concerns.
--- NOTE | 2023-05-13 15:52 | NUR ---
IN FOR MED ADMINISTRATION PER EMAR. PT IS SUPINE, POSITIONED TO LEFT SIDE WITH PILLOWS UNDER HIS RIGHT SIDE. IVF RUNNING, NO LEAKING AT IV SITE IN LW. DRESSING INTACT. PT IS SLEEPING, SNORING, AWAKENS EASILY TO VOICE. PO GABAPENTIN ADMINISTERED, PT TOLERATED WELL. COMMUNICATING VERBALLY MORE NOW. TEMP IS DOWN TO 99.1 TEMPORAL. PT FALLS ASLEEP QUICKLY. REFRESHED PT'S WATER. WILL REPOSITION IN AN HOUR
[2023-05-13 17:52] VITALS: BP 117/83
--- NOTE | 2023-05-13 18:19 | NUR ---
IN FOR ABX ADMINISTRATION. IV FLUSHES WELL WITH GOOD RETURN. NO BURNING OR PAIN AT SITE, NO LEAKING. PT SITTING UPRIGHT IN BED, WATCHING TELEVISION, AT BEDSIDE. REPORTS PT HAS EATEN A BIT OF HIS DINNER. PT APPEARS TO BE MORE AWAKE THAN THROUGHOUT THE BEGINNING AND MIDDLE OF THIS SHIFT. CALL LIGHT IN REACH. DENIES FURTHER NEEDS AT THIS TIME.
--- NOTE | 2023-05-13 18:43 | NUR ---
PT WAS MORE OBTUNDED DURING THE MORNING AND AFTERNOON. COOPERATED WITH REPOSITIONING AND CATH CARE/EDER CARE/SKIN CARE, BUT DID NOT COMMUNICATE VERBALLY MUCH. TOWARDS THE EVENING, JUST BEFORE DINNER, PT BECAME MORE ALERT, ASKING TO "SIT UP". PT WAS REPOSITIONED, BEDBATH PERFORMED, SHAMPOO, SKIN CARE, EDER CARE, AND PARTIAL LINEN CHANGE PERFORMED AT THIS TIME. AT BEDSIDE. PT TOLERATES PO MEDS WELL WITHOUT ISSUES. IV ABX ROCEPHIN AND MG RIDER GIVEN TODAY. PT RAN A FEVER OF 102.7 IN THE LATE MORNING AND WAS GIVEN TYLENOL. SINCE THEN HE HAS BEEN ABOUT 99.3. WHEN HE AWOKE THIS EVENING HE C/O 10 OUT OF 10 PAIN "ALL OVER" AND WAS GIVEN ANOTHER DOSE OF TYLENOL. HIS FED HIM HIS DINNER AND THEY ARE CURRENTLY WATCHING TELEVISION. PT HAS BLOOD COMING FROM THE URINARY MEATUS AROUND THE CATHETER, AND THE URINE IS RED WITH RED SEDIMENT. DESITIN APPLIED TO COCCYX AND GLUTEAL CLEFT, DESENEX APPLIED TO UPPER OUTER THIGHS/HIPS. WAFFLE MATTRESS UNDERNEATH PT. IV SITE IS INTACT. PT UNABLE TO USE CALL LIGHT HE DOESN'T HAVE MUCH USE OF HIS UPPER EXTREMITIES (OR LOWER EXTREMITIES) AND IS BED BOUND. PT APPRECIATES THE CHAIR POSITION OF THE BED.
--- NOTE | 2023-05-13 19:42 | NUR ---
REPORT RECEIVED FROM DAY SHIFT RN. PT LYING IN BED ALERT. REPORTS HE IS COMFORTABLE. DENIES NEEDS. WHITE BOARD UPDATED. CALL LIGHT IN REACH. AT BEDSIDE.
[2023-05-13 20:55] VITALS: BP 111/66
--- NOTE | 2023-05-13 22:49 | NUR ---
EVENING ASSESSMENT COMPLETE. SCHEDULED MEDS ADMIN PER EMAR. NEW BAG IVF INFUSING PER ORDER. 2PA TO REPOSITION IN BED. COCCYX CLEANSED AND DESENEX APPLIED. SKIN INTACT TO COCCYX AREA. NELSON CARE DONE. BLOODY DRAINAGE NOTED FROM NELSON INSERTION SITE. NELSON PATENT WITH RED URINE. TELE #[address] AFIB. HR 80-90'S. SIPS OF WATER PROVIDED. ASSISTED WITH FACE WASH. PT DENIES FURTHER NEEDS. CALL LIGHT IN REACH.
--- NOTE | 2023-05-14 00:17 | NUR ---
PT CALLING OUT. REPORTS SPASMS IN HIS LEGS. 2PA TO REPOSITION. HOB ELEVATED FOR SIPS OF WATER. PT REPORTS HE IS COMFORTABLE AT THIS TIME.
--- NOTE | 2023-05-14 02:56 | NUR ---
PT RESTING IN BED WITH EYES CLOSED. RESPIRATIONS EVEN. TELE #2. HR 90'S. NELSON PATENT WITH DARK RED URINE. IVF INFUSING WNL. CALL LIGHT IN REACH. PT IN VIEW OF NURSES STATION.
[2023-05-14 05:50] VITALS: BP 112/73
[2023-05-14 05:55] LABS: BASOPHILS 0.3 % (0-2); EOSINOPHILS 0.6 % (0-6); HEMATOCRIT 31.8 % (35.0-50.0); HEMOGLOBIN 10.7 g/dL (12.0-18.0); MCH 29.9 (27-36); MCHC 33.5 g/dl (30-36); MCV 89.4 fl (81-99); MONOCYTES 5.8 % (0-12); NEUTROPHILS 88.3 % (39-80); PLATELET COUNT 110 K/uL (140-440); RBC 3.56 M/ul (4.3-5.7); RDW 16.6 (10.5-15.0)
[2023-05-14 06:09] LABS: ALBUMIN/GLOBULIN RATIO 0.59 (1.1-2.4); ANION GAP 13.5 (7-21); BILIRUBIN, TOTAL 0.9 ng/dL (0.2-1.0); BUN/CREATININE RATIO 17.09 (6.0-28.6); CALCIUM 8.2 mg/dL (8.5-10.1); CREATININE, SERUM 1.17 mg/dL (0.70-1.30); POTASSIUM 3.5 mmol/L (3.5-5.1); PROTEIN, TOTAL 5.4 g/dL (6.4-8.2)
--- NOTE | 2023-05-14 06:13 | NUR ---
VS AND I&O OBTAINED. PRN FOR 8/10 GENERALIZED PAIN ADMIN PER EMAR. DRIED BLOODY DRAINAGE NOTED AROUND NELSON INSERTION SITE. EDER/NELSON CARE COMPLETE. NELSON WITH DARK REDDISH BROWN URINE. 2PA TO REPOSITION IN BED. NO FURTHER NEEDS.
--- NOTE | 2023-05-14 07:31 | NUR ---
PT ALEEPING IN BED. BREATHS EVEN AND UNLABORED. CALL LIGHT WITHIN REACH
--- NOTE | 2023-05-14 09:02 | NUR ---
SHIFT ASSESSMENT COMPLETE. PT AWAKE AND SITTING UP IN BED TALKING TO STAFF. BREAKFAST TRAY IN ROOM. ASSISTS IN FEEDING. MEDICATIONS GIVEN. PT ROLLED TO SIDE WITH SOME DISCOMFORT TO ASSESS COCCYX WOUND. DESITIN APPLIED. PT REMAIN ON Q2 TURNS AND WAFFLE MATTRESS. CALL LIGHT GIVEN. PT DENIES OTHER NEEDS AT THIS TIME.
--- NOTE | 2023-05-14 09:15 | NUR ---
PER DISCUSSION WITH DR. CLARK PATIENT SHOULD BE READY TO RETURN TO [facility] TOMORROW. KIM AT [facility] NOTIFIED. REQUESTED COPY OF NELSON CATH PROTOCOL PATIENT WILL NEED INCREASED CATH CARE.
--- NOTE | 2023-05-14 09:41 | NUR ---
Q2 HR TURN COMPLETE. PT ON WAFFLE MATTRESS, PILLOW UNDER RIGHTSIDE/HIP. PT TOLERATES TURNING WIHTOUT DISCOMFORT. CALL LIGHT GIVEN
--- NOTE | 2023-05-14 10:40 | NUR ---
PHYSICAL THERAPY IN ROOM. PT TOLERATING EXERCISES.
[2023-05-14 10:57] VITALS: BP 109/68
--- NOTE | 2023-05-14 11:35 | NUR ---
Q2HR TURN TO LEFT SIDE COMPLETE. PT'S HEELS FLOATED WITH PILLOW. PT REMAINS ON WAFFLE MATTRESS. PILLOWS USED BEHIND AND IN FRONT OF PT FOR COMFORT. PT TOLERATES MOVING AND TURNING WITH MINIMAL DISCOMFORT. CALL LIGHT WITHIN REACH.
--- NOTE | 2023-05-14 12:34 | NUR ---
PT'S IN ROOM TO HELP FEED HIM LUNCH. CASE MANAGEMENT IN ROOM. PT AWAKE AND TALKING. PT DIDNT EAT MUCH BREAKFAST BUT IS AGREEABLE WITH TRYING TO EAT MORE OF HIS LUNCH. CALL LIGHT GIVEN.
--- NOTE | 2023-05-14 13:02 | NUR ---
AND GRANDSON IN ROOM WITH PT. PT AWARE BUT NONCOMMUNICATIVE. GAVE GUIDEPOST. PRAYED FOR STRENGTH OF BODY AND SPIRIT.
--- NOTE | 2023-05-14 14:20 | NUR ---
PT TURNED TO RIGHT SIDE LAYING POSITION. MODERATE AMOUNT OF SANGUINEOUS DRAINAGE NOTED TO GAUZE OVER MEATUS, GAUZE CHANGED. PT DID NOT LIKE THE PILLOW UNDER HIS LEGS FLOATING HIS HEELS. HEEL PROTECTORS APPLIED INSTEAD. NS INFUSING, IV PATENT, SITE C/D/I, NO REDNESS, SWELLING OR LEAKING NOTED. NELSON DRAINING DARK YELLOW URINE IN TUBING. NO REQUESTS AT THIS TIME.
[2023-05-14 14:25] VITALS: BP 121/74
--- NOTE | 2023-05-14 16:34 | NUR ---
q2hr turn complete. pt tolerates. pt reports decrease in pain from tylenol given earlier. meds given see emar. helped patient drink water. no other needs a this time. call light given.
--- NOTE | 2023-05-14 17:36 | NUR ---
PT LAYING IN BED ON HIS LEFT SIDE WITH PILLOWS UNDER RIGHT HIP. HEEL PROTECTORS IN PLACE. PT REMAINS OF WAFFLE MATTRESS. IN ROOM FOR DINNER. FRESH WATER GIVEN. EDUCATION PROVIDED ON ABX THERAPY. PT AND AGREEABLE. CALL LIGHT WITHIN REACH
--- NOTE | 2023-05-14 17:44 | NUR ---
PT REQUESTING TO SIT UP FARTHER. PT FLOATED IN CENTER OF BED WITH PILLOWS ON EITHER SIDE. PT'S ASKS ABOUT HEEL PROTECTORS AND EDUCATION PROVIDED ON PRESSURE INJURIES WHEN IMMOBILE. NO OTHER NEEDS AT THIS TIME. CALL LIGHT WITHIN REACH
--- NOTE | 2023-05-14 18:03 | NUR ---
PT MORE ALERT AND ORIENTED TODAY. EATING MORE FOOD AND ABLE TO VERBALIZE NEEDS. PUT HEEL PROTECTORS ON PT HEELS WERE RED BUT BLANCABLE. WAFFLE MATTRESS AND Q2HR TURNS PER ORDERS. MAGNESIUM ORDERED FOR LOW MAG LEVELS. URINE CULTURE SHOWED GRAM NEGATIVE RODS, ROCEPHIN ORDRED. COCCYX INJURY ASSESSED AND NO CHANGES NOTED. PLAN TO DC BACK TO [facility] TOMMOOW. AGREEABLE WITH POC.
[2023-05-14 18:47] VITALS: BP 119/88
--- NOTE | 2023-05-14 18:51 | NUR ---
TELE#2 ALARMING FOR A-FIB WITH RAPID RATE. PT REQUESTING TO SIT UP IN BED TO COUGH UP SOMETHING HE FEELS IS STUCK IN HIS THROAT. PT'S SAID HE DID COUGH UP A NOODLE. PT'S RESP RATE INCREASED AND PT CONTIINUES TO TRY AND COUGH. ATTEMPT TO CALL MD, NO ANSWER. WILL CONTNUE TO MONITOR
--- NOTE | 2023-05-14 18:55 | NUR ---
CALLS BACK AND IS NOTIFIED OF CHANGES. TO SEE PT.
[2023-05-14 19:30] VITALS: BP 109/72
--- NOTE | 2023-05-14 19:32 | NUR ---
DR. CLARK IN TO SEE PATIENT. PLAN TO HOLD IV METOPROLOL, HOLD SUCTION. PATIENT TO HAVE REPEAT CHEST X-RAY IN THE MORNING. PATIENT REPORTS THAT HE DOES NOT FEEL LIKE HE NEEDS SUCTION.
--- NOTE | 2023-05-14 19:45 | NUR ---
REPORT RECEIVED FROM DAY SHIFT RN. PT LYING IN BED ALERT. DR. CLARK AT BEDSIDE. HR 80-160'S. VERBAL ORDERS TO HOLD IV METOPROLOL AND GIVE SCHEDULED PO METOPROLOL EARLY VERIFIED WITH READBACK METHOD. SpO2 HIGH 90'S. RESPIRATIONS EVEN. BP WNL. NO SWALLOWING ISSUES NOTED WITH SWALLOWING MEDS. PT TURNED TO LEFT SIDE WITH PILLOWS. HOB >30 DEGREES. PT IN VIEW OF NURSES STATION. NO FURTHER NEEDS AT THIS TIME. WHITE BOARD UPDATED. CALL LIGHT IN REACH.
[2023-05-14 22:38] VITALS: BP 115/72
--- NOTE | 2023-05-14 23:23 | NUR ---
EVENING ASSESSMENT COMPLETE. SCHEDULED MEDS ADMIN PER EMAR. PRN FOR 6/10 GENERALIZED PAIN ADMIN PER EMAR. NO SWALLOWING ISSUES OR CHOKING NOTED. NELSON PATENT WITH CONCENTRATED YELLOW URINE. SCANT AMOUNT RED NOTED IN TUBING. BLOODY DRAINAGE FROM NELSON INSERTION SITE. EDER/NELSON CARE DONE. LINENS CHANGED DUE TO DRAINAGE. 2PA TO REPOSITION WITH PILLOWS. BUE DEPENDENT EDEMA NOTED. ARMS ELEVATED ON PILLOWS. HEEL PROTECTORS IN PLACE. TELE #[address] HR 80-120'S. PT DENIES FURTHER NEEDS. CALL LIGHT IN REACH.
[2023-05-15 00:11] VITALS: BP 111/76
--- NOTE | 2023-05-15 00:19 | NUR ---
HR CONSISTENTLY 120'S AND UP TO 150'S. PT RESTING IN BED WITH EYES CLOSED. SNORING SOFTLY. SpO2 MID 80'S ON RA. 2L/NC PLACED. SpO2 MID 90'S. PT WAKES EASILY. PRN FOR TACHYCARDIA ADMIN PER EMAR.
--- NOTE | 2023-05-15 03:40 | NUR ---
PT RESTING WITH EYES CLOSED. SpO2 94% WITH 2L/NC IN PLACE. HR 90'S-ONE TEENS.
[2023-05-15 05:53] VITALS: BP 115/71
--- NOTE | 2023-05-15 06:08 | NUR ---
VS AND I&O OBTAINED. 2PA TO REPOSITION IN BED. PT REPORTS HE SLEPT WELL. SIPS OF WATER PROVIDED. NO S/SX OF ASPIRATION. NELSON PATENT WITH YELLOW URINE. NO BLOODY DRAINAGE FROM NELSON INSERTION SITE THIS AM. PT DENIES FURTHER NEEDS. CALL LIGHT IN REACH.
[2023-05-15 06:26] LABS: BASOPHILS 0.3 % (0-2); EOSINOPHILS 1.6 % (0-6); HEMATOCRIT 33.1 % (35.0-50.0); LYMPHOCYTES 8.3 % (24-44); MCH 29.6 (27-36); MCHC 33.3 g/dl (30-36); MONOCYTES 7.9 % (0-12); NEUTROPHILS 81.9 % (39-80); PLATELET COUNT 125 K/uL (140-440); RBC 3.71 M/ul (4.3-5.7); RDW 16.4 (10.5-15.0)
[2023-05-15 06:43] LABS: ALBUMIN 1.8 g/dL (3.4-5.0); ALBUMIN/GLOBULIN RATIO 0.55 (1.1-2.4); ANION GAP 13.3 (7-21); BILIRUBIN, TOTAL 0.6 ng/dL (0.2-1.0); BUN/CREATININE RATIO 18.98 (6.0-28.6); CALCIUM 8.2 mg/dL (8.5-10.1); CREATININE, SERUM 0.79 mg/dL (0.70-1.30); MAGNESIUM 1.7 mg/dL (1.8-2.4); POTASSIUM 3.3 mmol/L (3.5-5.1); PROTEIN, TOTAL 5.1 g/dL (6.4-8.2)
--- NOTE | 2023-05-15 07:20 | NUR ---
PT REPORT RECEIVED FROM BRUCE BELCHER. PT IS ASLEEP, LIGHTS OFF, BUT AWAKENS EASILY TO VOICE. IV PUMP ALARMING, FLUIDS COMPLETE. NEW BAG OF NS HUNG AND STARTED AT ORDERED RATE OF 125/HR. PT DENIES NEEDS AT THIS TIME AND FELL BACK TO SLEEP WHILE I WAS IN THE ROOM.
[2023-05-15 09:28] VITALS: BP 112/73
--- NOTE | 2023-05-15 09:38 | NUR ---
CHEST XR REVIEWED WITH DR. CLARK. RETURN TO [facility] ON HOLD AT THIS TIME. KIM AT [facility] UPDATED OF CHANGES.
--- NOTE | 2023-05-15 10:27 | NUR ---
RECIEVED HAND OFF REPORT FROM BRUCE YUSUF. PT RESTING IN BED, AWAKE. DENIES FURTHER NEEDS. CALL LIGHT IN REACH.
--- NOTE | 2023-05-15 13:00 | NUR ---
PT REPOSITIONED IN BED, AT BEDSIDE. CALL LIGHT IN REACH. DENIES FURTHER NEEDS AT THIS TIME.
--- NOTE | 2023-05-15 13:25 | NUR ---
PT ABLE TO PARTICIPATE IN CONVERSATION. AND GRANDSON IN ROOM. ALL IN GOOD SPIRITS. EXERICSED MINISTRY OF PRESENCE. PRAYED FOR CONGREGATIONAL AND ABIDING PEACE.
--- NOTE | 2023-05-15 14:15 | NUR ---
BROUGHT PT ENSURE TO HELP WITH NUTRIENT INTAKE. PT WAS ABLE TO TAKE A FEW BITES OF HIS LUNCH. PT ABLE TO TAKE A FEW SIPS WITHOUT DIFFICULTY. AT BEDSIDE. CALL LIGHT IN REACH.
[2023-05-15 14:44] VITALS: BP 116/71
--- NOTE | 2023-05-15 16:13 | NUR ---
SPOKE WITH AMBER REGARDING ELEVATED HEART RATE. MD GAVE VERBAL ORDER TO GIVE PRN LOPRESSOR.
--- NOTE | 2023-05-15 17:10 | NUR ---
This rn on tele duty in CCU - notified ms and weigher and charger multiple times of increase HR - reported that pt is asleep at rest in bed - tele alarming 120-170s. Dr. Ford on CCU unit and alerted of run of 160's and aware. hr continues in afib with rates in 120-170 CCU continue to monitor and alert of alarms.
[2023-05-15 17:47] VITALS: BP 117/72
--- NOTE | 2023-05-15 17:55 | NUR ---
pt HR continues elevated on tele alarms - strips reviewed with rn ccu Kathy and MS called. Franci jerome notified and LORENZO rn is working on pt. HR continues to sustain elevated.
--- NOTE | 2023-05-15 17:59 | NUR ---
CCU CALLED, PT HR 170'S HILBORN AWARE, AT BEDSIDE. VERBAL ORDER TO ADMINSITER 3RD DOSE OF 5MG LOPRESSOR. AT BEDSIDE.
[2023-05-15 21:05] VITALS: BP 116/77; BP 118/76
--- NOTE | 2023-05-15 21:06 | NUR ---
Noe is resting comfortable, no complaints, report given by multisensor intelligence officer nurse (merari). call light in shift, patient watching TV.
--- NOTE | 2023-05-15 21:16 | NUR ---
patients HR still running 140-150. notified MD. Directed to give toprol and monitor. If in the next 1-1 1/2 the HR does not come down then he would like patient transferred to ICU. Have given patient medication and will continue close monitoring. Patient in no acute distress at this time, denies CP or SOB, call light in reach, bed in low position.
--- NOTE | 2023-05-15 22:10 | NUR ---
RECEIVED CALL FROM . UPDATED ON PATIENT STATUS. RECEIVED ORDER TO PLACE PATIENT ON 2L VIA NC. NO FURTHER NEW ORDERS ON PATIENTS HR AT THIS TIME. UPDATED PATIENTS PRIMARY RN.
[2023-05-16] VITALS (8 sets, daily range): BP systolic 95–119; BP diastolic 61–75
--- NOTE | 2023-05-16 00:08 | NUR ---
CALL ANSWERED FROM CCU RN ELENA. ELENA RN ASKING IF pt IS GOING TO RECEIVE PRN LOPRESSOR AND ASKED TO SPEAK WITH OPERATIONS BUSINESS PARTNER. OPERATIONS BUSINESS PARTNER UNAVAILABLE AND IN ANOTHER pt ROOM. OPERATIONS BUSINESS PARTNER AND PRIMARY RN BOTH MADE AWARE OF PHONE CALL AND PRIMARY RN GOING TO ROOM FOR PRODUCTION SUPERVISOR TRAINEE.
--- NOTE | 2023-05-16 00:46 | NUR ---
PATIENT SLEEPING BETWEEN CARE, HR STILL SPIKING RANDOMLY TO 140-150 AND ONE WITNESSED 160 PER TELEMETRY. PATIENT GIVEN LOPRESSOR 5MG IV WITH INITIAL BP 119/[address] THROUGH ADMINISTRATION BP108/71 AND HR 120 AND AT COMPLETION OF MEDICATION BP 111/66 AND HR 100.
--- NOTE | 2023-05-16 02:10 | NUR ---
PATIENT CONTINUES TO HAVE EPISODES OF HR GOING UP TO 140'S QUICKLY DROPS DOWN TO 100 AND SOMETIMES TO 90. PATIENT ASYMPTOMATIC, REMAINING VITALS STABLE, CONTACTED MD WITH UPDATE AND INSTRUCTED TO GIVE AM DOSE OF CARDIZEM NOW AND CONTINUE MONITORING
--- NOTE | 2023-05-16 04:22 | NUR ---
Patient resting comfortable with eyes closed, no resp distress noted, appears comfortable, tele remains intact and HR now consistently staying at 98-110. lights are out, call light in reach.
--- NOTE | 2023-05-16 05:28 | NUR ---
Patient has slept well through the night, HR at beginning of shift going up to 150-160 and given toprol po and MD notified, continued to spikes that quickly go up to 140-150 and then quickly down again. Lopressor 5mg IV given when due at [place] and continued to have several spikes and MD notified. Patient given his 0900 scheduled cardizem 240mg earlier per MD and within 1 hour HR has been steadily staying below 100. Assisted to turn, minimal movement of extremeties x4 and increased discomfort with movement. tucker intact with 425 output for shift. lights out now, call light in reach.
[2023-05-16 05:36] LABS: BASOPHILS 0.3 % (0-2); EOSINOPHILS 1.2 % (0-6); HEMATOCRIT 34.3 % (35.0-50.0); HEMOGLOBIN 11.5 g/dL (12.0-18.0); LYMPHOCYTES 10.1 % (24-44); MCH 29.5 (27-36); MCHC 33.6 g/dl (30-36); MCV 87.9 fl (81-99); MONOCYTES 10.2 % (0-12); NEUTROPHILS 78.2 % (39-80); PLATELET COUNT 143 K/uL (140-440); RDW 16.5 (10.5-15.0)
[2023-05-16 05:57] LABS: ALBUMIN/GLOBULIN RATIO 0.57 (1.1-2.4); ANION GAP 12.3 (7-21); BILIRUBIN, TOTAL 0.6 ng/dL (0.2-1.0); BUN/CREATININE RATIO 15.58 (6.0-28.6); CALCIUM 8.2 mg/dL (8.5-10.1); CREATININE, SERUM 0.77 mg/dL (0.70-1.30); MAGNESIUM 1.5 mg/dL (1.8-2.4); POTASSIUM 3.3 mmol/L (3.5-5.1); PROTEIN, TOTAL 5.5 g/dL (6.4-8.2)
--- NOTE | 2023-05-16 08:30 | NUR ---
Pt discussed in 0830 IDT. Pt will not dc today as HR was elevated during the night.
--- NOTE | 2023-05-16 10:10 | NUR ---
PT HEART RATE 118, BP 102/56 MAP 68. DUE TO PARAMETERS. SPOKE WITH MD. MD GAVE VERBAL ORDER TO HOLD DILTIAZEM 120MG. CONTIUNE TO MONITOR.
--- NOTE | 2023-05-16 10:21 | NUR ---
MORNING ASSESSMENT COMPLETE. PT ALERT. DISORIENTED TO DATE, PLACE, SITUATION. ABLE TO VERY NAME AND . PT STATES GENERALIZED PAIN, WITH MOVEMENT. REQUESTED TO REST. REPOSITIONED PT IN BED, ABLE TO SWOLLOW PILLS W/O DIFFICULTY. PT UNABLE TO LIFT ARMS OR LEGS. PT WAS ABLE TO SLIGHTLY MOVE LEFT TOES. WHEN ASKED TO LIFT EXT HE STATES HE WAS WITHOUT MOVEMENT NOTED. UNABLE TO FEEL PAINFUL STIMULI IN EXT X4. BLOOD NOTED AROUND MEATUS. CLEANED. NEW GOWN APPLIED. PT TOOK FEW BITES OF BREAKFAST. ENSURE PROVIDED FOR NUTRIENTS. CALL LIGHT IN REACH. AT BEDSIDE.
--- NOTE | 2023-05-16 10:26 | NUR ---
RECIEVED PT REPORT FROM EVONNE RN. PT APEARS TO BE RESTING COMFORTABLY. CALL LIGHT WITHIN REACH AND BED IN LOWEST POSITION.
--- NOTE | 2023-05-16 11:20 | NUR ---
Attempted to see pt and he was sleeping. not in room. Updated KIM from [facility], pt will not dc today.
--- NOTE | 2023-05-16 12:30 | NUR ---
pt repositioned in bed. pt sitting up in bed. at bedside assisting pt with lunch. ensure provided. call light in reach
--- NOTE | 2023-05-16 13:59 | NUR ---
PT VERY SLEEPY. WOKE TO TOUCH BUT NOT TO VOICE. SHORT VISIT. PRAYED FOR PEACE AND COMFORT.
--- NOTE | 2023-05-16 14:34 | NUR ---
TRANSFERRED PT TO CHAIR VIA [facility] USING FULL BODY SLING. PT UNABLE TO HOLD LEGS UP DURING TRANSFER. PT AND PREDATORY ANIMAL EXTERMINATOR IN ROOM TO ASSIST. CALL LIGHT IN REACH. BUE ELEVATED WITH PILLOWS.
--- NOTE | 2023-05-16 14:59 | NUR ---
ASSUMING CARE OF PT. RECEIVED REPORT FROM JAKE BARRERA.
--- NOTE | 2023-05-16 16:24 | NUR ---
PT WAS WOKEN UP TO GIVE 1500 MED. PT SWALLOWED PILL WITHOUT DIFFICULTY. PT WAS REPOSITIONED IN CHAIR WITH ASSISTANCE FROM STUDENT AND RN. PT ALSO FINISHED HIS WATER AND ATE SOME JELLO WITHOUT DIFFICULTY. SN CHANGED TV CHANNEL FOR PT. CALLLIGHT WITHIN REACH. PT STATED SHOULD BE BACK TO VISIT FOR DINNER SOON.
--- NOTE | 2023-05-16 16:33 | NUR ---
Patient awake sitting up in chair, alert to self, no acute distress. Patient reports he feels nauseated. Admin Zofran 4mg IV at this time. Patient moved from chair to bed with beryl assist, pt tolerated well. Patient denies further needs. Call light within patient reach.
--- NOTE | 2023-05-16 20:14 | NUR ---
Report provided by day shift RN, Patient resting comfortably in bed, at bedside and assisting patient with his meal. no distress noted, call light within reach.
--- NOTE | 2023-05-16 21:44 | NUR ---
Patient is resting, tucker intact, VSS, minimal movement of extremeties x4, does have pain with movement. arms bilat swollen, supported with pillows, Denies nausea, lights are out at this time, call light in reach.
--- NOTE | 2023-05-16 23:07 | NUR ---
Patient resting comfortable with eyes closed, no distress noted, call light within reach.
[2023-05-17] VITALS (7 sets, daily range): BP systolic 99–127; BP diastolic 61–83
--- NOTE | 2023-05-17 02:48 | NUR ---
patient sleeping between care, appears comfortable, a little discomfort when repositioned but tolerating well, tucker intact and draining, Antibiotic infusing, patient call light within reach.
--- NOTE | 2023-05-17 05:06 | NUR ---
patient having spikes on his tele to 140-150's. 5mg lopressor IV given. patient asymptomatic. resting comfortably, no distress, VSS.
[2023-05-17 05:30] LABS: BASOPHILS 0.3 % (0-2); EOSINOPHILS 0.7 % (0-6); HEMATOCRIT 34.3 % (35.0-50.0); HEMOGLOBIN 11.5 g/dL (12.0-18.0); LYMPHOCYTES 8.4 % (24-44); MCH 29.4 (27-36); MCHC 33.4 g/dl (30-36); MCV 87.9 fl (81-99); MONOCYTES 9.1 % (0-12); NEUTROPHILS 81.5 % (39-80); PLATELET COUNT 168 K/uL (140-440); RDW 16.4 (10.5-15.0)
[2023-05-17 05:45] LABS: ALBUMIN 2.1 g/dL (3.4-5.0); ALBUMIN/GLOBULIN RATIO 0.6 (1.1-2.4); ANION GAP 12.6 (7-21); BILIRUBIN, TOTAL 0.6 ng/dL (0.2-1.0); BUN/CREATININE RATIO 14.49 (6.0-28.6); CALCIUM 8.5 mg/dL (8.5-10.1); CREATININE, SERUM 0.69 mg/dL (0.70-1.30); POTASSIUM 3.6 mmol/L (3.5-5.1); PROTEIN, TOTAL 5.6 g/dL (6.4-8.2)
--- NOTE | 2023-05-17 06:29 | NUR ---
Patients HR still spiking to 140-150 periodically even after lopressor. MD notified and will given 240mg Cardizem early.
--- NOTE | 2023-05-17 08:00 | NUR ---
Patient in bed resting, easily wakes to verbal stimuli. Patient is alert to self. Patient's arms are elevated due to swelling, pt reports his arms/legs are numb and tingling. Patient is unable to move extremeties when prompted to do so. Patient's speech remains clear and appropriate, swallow intact. Underwood in place, notable concentrated urine. Pt remains close to RN station.
--- NOTE | 2023-05-17 09:22 | NUR ---
Physical therapy in working with patient.
--- NOTE | 2023-05-17 09:26 | NUR ---
SPOKE TO PATIENT AND ABOUT THE DISCHARGE PLAN. PATIENT'S HEART RATE WAS UP AND DOWN DURING THE NIGHT. MD WILL INCREASE THE PATIENT'S HEART MEDICATIONS TO GET BETTER RATE CONTROL. THE PATIENT WILL STAY THROUGH THE WEEKEND.
--- NOTE | 2023-05-17 10:00 | NUR ---
SPOKE TO PATIENT ABOUT THE DISCHARGE PLAN. PATIENT WOULD LIKE TO GO TO THE [facility] TO A SNF FOR REHAB. POST COVID. RESP.FAILURE. BHAVIN ARELLANO RECIEVED A REFERRAL FROM CASE MANAGEMENT. SPOKE TO DEANNA THE LIFESTYLE CONSULTANT WHO WILL REVIEW THE REFERRAL AND CALL THE REIMBURSEMENT CONSULTANT SATURDAY AFTER THE CHART IS REVIEWED.
--- NOTE | 2023-05-17 10:24 | NUR ---
UPON ENTRY TO ROOM, PT APPEARS TO BE RESTING CALMLY. WHEN AWOKE BY SN TO GIVE MEDICATIONS PT RESPONSE WAS DELAYED AND LETHARGIC. WHEN ASKED TO CONFIRM PT RESPONDED BY STATING HIS FIRST AND LAST NAME. PT OUTPUT PRIOR TO GIVING LASIX WAS DARK IN COLOR. IV ANTIBIOTICS STARTED. PT WAS MOVED UP IN THE BED BY SN AND RN TO ENSURE COMFORT. PILLOWS UNDER EACH ARM FOR ELEVATION, AND ROLLED TOWELS IN EACH HAND TO PREVENT CRAMPING IN FINGERS. CURTAINS DRAWN FOR PT TO REST COMFORTABLY. SIDE RAILS UP, BED LOWERED TO FLOOR, CALL LIGHT WITHIN REACH.
--- NOTE | 2023-05-17 14:37 | NUR ---
Patient sitting in chair, awake, alert to self. Patient requesting to get back in the bed as he reports he is uncomfortable. Patient assisted back to bed via sling with appointment setter assist, pt tolerated well. Patient provided with scheduled neurontin and prn tylenol 650mg po for reports of general pain/discomfort. Patient's speech is clear and appropriate, swallow intact. Patient's neurological status is unchanged from previous assessment. Underwood intact, clear yellow urine noted. Pt close to RN station. No current needs. Head of bed elevated.
--- NOTE | 2023-05-17 16:13 | NUR ---
lopressor 5mg IV admin at this time for hear rate 121bpm. IV abx started per provider order at this time as well. Patient awake at this time, no needs at this time. Patient close to RN station.
--- NOTE | 2023-05-17 20:00 | NUR ---
PATIENT RESTING WITH EYES CLOSED, APPEARS COMFORTABLE, REPORT PROVIDED BY STONEY RN, CALL LIGHT WITHIN REACH.
--- NOTE | 2023-05-17 22:47 | NUR ---
PATIENT AWAKE WATCHING TV, VSS, TELE INTACT AND REMAINS IN A FIB, DENIES SOB OR CP. EXTREMETIES X4 CONTINUE TO HAVE LIMITED MOVEMENT, HEEL PROTECTION ON FEET BILAT, LUNGS CLEAR BUT DIMINISHED. NELSON INTACT AND BELOW LEVEL OF BED. CMS INTACT TO ALL EXTREMEITES. COMFORTABLE AT THIS TIME, INCREASED PAIN WITH MOVEMENT. LIGHTS ARE OUT, CALL LIGHT IN REACH.
--- NOTE | 2023-05-18 00:17 | NUR ---
Patient sleeping, appears comfortable, no noted distress, call light in reach.
--- NOTE | 2023-05-18 02:24 | NUR ---
Patient resting comfortably, sleeping between care, no complaints or noted distress, VSS, tele intact with patient still in afib with HR managed with a rate ranging 80-90. call light in reach.
[2023-05-18 02:35] VITALS: BP 110/64
--- NOTE | 2023-05-18 04:07 | NUR ---
patient awake watching TV, has no complaints, no noted distress, tele intact, tucker intact and below level of bed, call light within reach.
[2023-05-18 05:33] VITALS: BP 111/71
--- NOTE | 2023-05-18 06:37 | NUR ---
patient awake on and off last night, he has had no complaints, no noted distress, telt intact with HR maintaining through the night between 80-100. tucker intact with adequate output. call light within reach.
--- NOTE | 2023-05-18 07:34 | NUR ---
Patient up to chair via sling, tolerated fair. Patient reports he is painful. Admin Oxycodone 5mg po and tylenol 650mg po. Patient provided with fresh water. Underwood intact/patent, notable clear yellow urine. Patient updated with plan of care for the day. Pt close to RN station.
[2023-05-18 14:02] VITALS: BP 103/63
[2023-05-18 17:56] VITALS: BP 127/67
--- NOTE | 2023-05-18 20:04 | NUR ---
REPORT RECEIVED FROM DAY SHIFT RN. PT LYING IN BED ALERT AND ORIENTED. DENIES NEEDS. AT BEDSIDE. WHITE BOARD UPDATED. CALL LIGHT IN REACH.
[2023-05-18 22:38] VITALS: BP 112/69
--- NOTE | 2023-05-18 22:45 | NUR ---
EVENING ASSESSMENT COMPLETE. SCHEDULED MEDS ADMIN PER EMAR. PT REPORTS RIGHT FOOT/HEAD PAIN 02/18. PRN FOR PAIN ADMIN PER EMAR. HOB ELEVATED. NO SWALLOWING ISSUES NOTED. IV ABX INFUSING PER ORDER. NELSON PATENT WITH CONCENTRATED URINE. BLOODY DRAINAGE NOTED FROM NELSON INSERTION SITE. NELSON CARE DONE. 2PA TO REPOSITION IN BED WITH PILLOWS. NELSON NOTED TO BE DRAINING PINK TINGED URINE AFTER MOVEMENT. HEEL PROTECTORS IN PLACE. PT DENIES QUESTIONS OR CONCERNS. CALL LIGHT IN REACH.
--- NOTE | 2023-05-19 00:56 | NUR ---
PT RESTING WITH EYES CLOSED. RESPIRATIONS EVEN. CALL LIGHT IN REACH. PT IN VIEW OF NURSES STATION.
--- NOTE | 2023-05-19 02:35 | NUR ---
PT RESTING WITH EYES CLOSED. 1L/NC IN PLACE. RESPIRATIONS EVEN. NELSON PATENT WITH YELLOW URINE AT THIS TIME. CALL LIGHT IN REACH.
--- NOTE | 2023-05-19 04:30 | NUR ---
PT RESTING IN BED WITH EYES CLOSED. RESPIRATIONS EVEN. CALL LIGHT IN REACH.
[2023-05-19 05:15] LABS: BASOPHILS 0.4 % (0-2); EOSINOPHILS 2.6 % (0-6); HEMATOCRIT 33.1 % (35.0-50.0); HEMOGLOBIN 11.1 g/dL (12.0-18.0); LYMPHOCYTES 15.6 % (24-44); MCH 29.2 (27-36); MCHC 33.5 g/dl (30-36); MCV 87.3 fl (81-99); MONOCYTES 7.7 % (0-12); NEUTROPHILS 73.7 % (39-80); PLATELET COUNT 189 K/uL (140-440); RBC 3.79 M/ul (4.3-5.7); RDW 16.3 (10.5-15.0)
[2023-05-19 05:22] LABS: ANION GAP 11.2 (7-21); BUN/CREATININE RATIO 8.45 (6.0-28.6); CREATININE, SERUM 0.71 mg/dL (0.70-1.30); POTASSIUM 3.2 mmol/L (3.5-5.1)
[2023-05-19 06:27] VITALS: BP 109/66
--- NOTE | 2023-05-19 06:48 | NUR ---
VS AND I&O OBTAINED. PT REPORTS PAIN IS TOLERABLE. 2PA TO REPOSITION IN BED WITH PILLOWS. SIPS OF WATER PROVIDED. NELSON PATENT WITH YELLOW URINE. SCANT AMOUNT BLOODY DRAINAGE NOTED FROM NELSON INSERTION SITE. NELSON CARE DONE. IV ABX INFUSING PER ORDER. PT DENIES FURTHER NEEDS. CALL LIGHT IN REACH.
--- NOTE | 2023-05-19 08:00 | NUR ---
AT BEDSIDE, PT DOES NOT WANT TO GET UP TO THE CHAIR THIS AM FOR BREAKFEST. FEED PT HIS BKF. SHE STATES THAT HE IS MORE SLEEPLY THIS AM. TV ON, PAT WILL OPEN EYES AND TALK WITH LIVING SUPERVISOR WHEN SPOKEN TO.
[2023-05-19 08:21] VITALS: BP 111/61
[2023-05-19 09:32] VITALS: BP 105/68
--- NOTE | 2023-05-19 12:00 | NUR ---
pt up to the chair at this time, was gone, but arrived when in the process of getting him up. tone with staff is angery and did not approve of staff getting him up. explained why it is importante to get up in the chair to prevent pneu's. pt was also saline locked at this time.
[2023-05-19 14:20] VITALS: BP 103/61
[2023-05-19 17:34] VITALS: BP 109/71
--- NOTE | 2023-05-19 17:37 | NUR ---
PT LIFTED BACK TO BED WITH CEILING LIFE WITH TWO PERSON ASSISTANCE. PT ATTENDS CHANGED ALSO AT THIS TIME, APPLIED ALIVENT DRESSING TO OPEN SORE ON BUTTUCKS AND IT IS ABOUT THE SIZE OF A QUARTER. NELSON DRAINING YELLOW IN COLOR URINE, AND HAD SCANT RED IN COLOR DRAINAGE. PT CLEANED UP AND IS READY FOR DINNER, IS AT THE BEDSIDE.
--- NOTE | 2023-05-19 18:51 | NUR ---
PT TURNED TO LEFT SIDE AT THIS TIME, REMAINS AT THE BEDSIDE.
--- NOTE | 2023-05-19 20:06 | NUR ---
REPORT RECEIVED FROM DAY SHIFT RN. PT LYING IN BED ALERT. REPORTS BUTTOCK PAIN 02/18. PRN FOR PAIN ADMIN PER EMAR. 2PA TO REPOSITION WITH PILLOWS. NO FURTHER NEEDS. WHITE BOARD UPDATED. CALL LIGHT IN REACH.
[2023-05-19 22:06] VITALS: BP 118/71; BP 118/741
--- NOTE | 2023-05-19 22:40 | NUR ---
EVENING ASSESSMENT COMPLETE. SCHEDULED MEDS ADMIN PER EMAR. PT REPORTS PAIN 02/18. PRN FOR PAIN ADMIN PER ORDER. IV ABX INFUSING WNL. NELSON PATENT WITH QS YELLOW URINE. NELSON CARE DONE. SCANT AMOUNT BLOODY DRAINAGE NOTED. 2PA TO REPOSITION IN BED WITH PILLOWS. BUE ELEVATED ON PILLOWS. PT DENIES FURTHER NEEDS. CALL LIGHT IN REACH.
--- NOTE | 2023-05-20 02:10 | NUR ---
PT RESTING WITH EYES CLOSED. RESPIRATIONS EVEN. SPOT CHECK SpO2 96%. HR 80'S.
--- NOTE | 2023-05-20 04:07 | NUR ---
IV ABX COMPLETE. 2PA TO REPOSITION TO LEFT SIDE WITH PILLOWS. PRN FOR PAIN ADMIN FOR 7/10 BILAT ARM PAIN. ARMS ELEVATED ON PILLOWS. ASSESSMENT UNCHANED. PT REPORTS HE IS COMFORTABLE, DENIES FURTHER NEEDS.
[2023-05-20 06:10] VITALS: BP 104/60
--- NOTE | 2023-05-20 06:20 | NUR ---
VS AND I&O OBTAINED. IV ABX INFUSING PER ORDER. ASSISTED PT TO REPOSITION IN BED. NO FURTHER NEEDS.
--- NOTE | 2023-05-20 07:10 | NUR ---
PT REPORT RECEIVED FROM BRUCE BELCHER. PT IS ASLEEP IN BED, LIGHTS OFF.
--- NOTE | 2023-05-20 08:46 | NUR ---
IN FOR ASSESSMENT; HOWEVER, IS AT BEDSIDE FEEDING PT HIS BREAKFAST. PT IS A&O TO SELF. DENIES ANY NEEDS AT THIS TIME. WILL RETURN FOR ASSESSMENT AFTER BREAKFAST. PT GIVEN PO MEDS AT THIS TIME. CALL LIGHT IN REACH.
[2023-05-20 08:57] VITALS: BP 123/62
--- NOTE | 2023-05-20 09:36 | NUR ---
SPOKE WITH KIM AT [facility], PATIENT OKAY TO RETURN TODAY AT [address]. DR. CUBA NOTIFIED. UPDATED CHART NOTES FAXED.
--- NOTE | 2023-05-20 10:07 | NUR ---
PATIENT IN BED RESTING WITH EYES CLOSED. VITALS DONE BY RN. I&O'S CHARTED. CALL LIGHT IN REACH.
[2023-05-20] MEDS ORDERED: METOPROLOL SUCC50 MG PO (10:16)
[2023-05-20] MEDS ORDERED: DILTIAZEM 24HR240 M1 PO (10:16)
--- NOTE | 2023-05-20 12:43 | NUR ---
PT REPORT PROVIDED TO BRUCE OLIVAREZ AT [facility]. QUESTIONS ANSWERED. [facility] SHOULD BE ARRIVING TO TRANSPORT PT TO [facility] NON EMERGENT.
[2023-05-20 13:10] VITALS: BP 119/72
--- NOTE | 2023-05-20 13:20 | NUR ---
PT REPORT PROVIDED TO [facility] CLAIM TAKER. PT WAS TRANSFERRED VIA [facility] LIFT FROM BED TO [facility], SECURED WITH SEAT BELTS, AND [facility] TRANSFERRED PT VIA [facility] TO THEIR AMBULANCE FOR TRANSPORT TO [facility]. DISCHARGE PKT GIVEN TO CLAIM TAKER. PT'S PERSONAL BELONGINGS AND WAFFLE MATTRESS WITH PUMP GIVEN TO CLAIM TAKER. PT'S PRESENT FOR TRANSFER.
== END 2023-05-20 13:30 | DRG 871 ==
LOC: ED 15:19 → MS 19:50
PROVIDERS: Emergency Medicine; ADMIT Family Medicine; ATTEND Internal Medicine
DX: A41.9 Sepsis, unspecified organism (principal); J69.0 Pneumonitis due to inhalation of food and vomit; N17.9 Acute kidney failure, unspecified; E87.1 Hypo-osmolality and hyponatremia; N39.0 Urinary tract infection, site not specified; J81.1 Chronic pulmonary edema; Z20.822 Contact with and (suspected) exposure to COVID-19; R29.90 Unspecified symptoms and signs involving the nervous system; E83.42 Hypomagnesemia; I48.91 Unspecified atrial fibrillation; K74.60 Unspecified cirrhosis of liver; F32.A Depression, unspecified; R33.9 Retention of urine, unspecified; Z86.73 Personal history of transient ischemic attack (TIA), and cerebral infarction without residual deficits; Z86.19 Personal history of other infectious and parasitic diseases; Z87.891 Personal history of nicotine dependence; Z79.01 Long term (current) use of anticoagulants
CPT/HCPCS: 36415; 51702; 51798; 71045; 80048; 80053; 81001; 83605; 83735; 83880; 84100; 85025; 85060; 85610; 87040; 87077; 87088; 87186; 87502; 93005; 93010; 97110; 97112; 97140; 97161; 97165; 97530; 97535; 99285-25; A9270; C9803; J0696; J1940; J2405; J2543; J3475; J3480; J3490; J7030; J7060; U0002

== ENCOUNTER 2024-08-04 20:16 | Emergency (ER) | payer MEDICARE, OTHER ==
[~2024-08-04] VITALS: Ht 172.7 cm; Wt 75.0 kg
[~2024-08-04 20:16] MED LIST changes: +ACETAMINOPHEN500 MG PO; +ACETIC ACID IRRIGATION; +BACTRIM DS TAB1 EACH PO; +BENADRYL ITCH28.3 G1 TOP; +CRANBERRY CONC500 MG PO; +DILTIAZEM ER240 M2 PO; +DULCOLAX10 MG PR; +DULOXETINE HCL30 MG PO; +ELIQUIS5 MG PO; +FIBER LAX625 MG PO; +FIBERCON1 TABLET PO; +FLEET ENEMA133 ML PR; +GABAPENTIN100 MG PO; +JUBLIA4 ML TOP; +MAGOX 400400 MG PO; +MANNOSE50 GM PO; +METOCLOPRAMIDE10 MG PO; +METOPROLOL SUCC50 MG PO; +MIRTAZAPINE15 MG PO; +MIRTAZAPINE7.5 MG PO; +NIZORAL A-D125 M1 TOP; +ONDANSETRON ODT4 MG PO; +OXYCODONE HCL5 MG PO; +REMERON15 MG PO; +SENNA-S 8.6-501 EACH PO; +TIZANIDINE HCL2 M1 PO; +TIZANIDINE HCL2 MG PO; +TOPROL XL100 MG PO; +VITAMIN B COMP1 EAC4 PO; +VITAMIN C250 MG PO; +VITAMIN D325 MC2 PO
[2024-08-04] MEDS ORDERED: LIDOCAINE 2% VISCOUS 6 ML SYR TOP ONE (20:30)
[2024-08-04] MEDS ORDERED: REMERON15 MG PO (20:41)
[2024-08-04] MEDS ORDERED: TRAZODONE HCL50 MG PO (20:42)
[2024-08-04 21:04] LABS: BILIRUBIN, URINE NEGATIVE (negative); BLOOD/HGB, URINE LARGE (Negative); KETONE, URINE TRACE (Negative); LEUK ESTERASE, URINE SMALL (negative); NITRITE, URINE POSITIVE (negative); PH, URINE 5.5 (5-7)
[2024-08-04 21:13] LABS: BACTERIA, URINE 1+ /hpf (negative); CASTS, URINE NONE SEEN \\lpf; COLLECTION TYPE, URINE CLEAN CATCH; CRYSTALS, URINE NONE SEEN (0-1+); EPITHELIAL CELLS, URINE SQUAMOUS 1+ /lpf (0-1+); RED BLOOD CELLS, URINE >50 /hpf (0-5); REFLEX CULTURE, URINE Yes (No)
[2024-08-04] MEDS ORDERED: MACROBID 100 M100 MG PO ×2 (21:15→21:25)
[2024-08-04] MEDS ORDERED: NITROFURANTOIN MONOHYD MACROCR 100 MG HOME.PACK PO ONE (21:30)
[2024-08-04 21:43] VITALS: BP 103/79
== END 2024-08-04 21:44 | disposition home or self-care (01) ==
LOC: ED 20:16
PROVIDERS: Family Medicine
DX: T83.021A Displacement of indwelling urethral catheter, initial encounter (principal); T83.511A Infection and inflammatory reaction due to indwelling urethral catheter, initial encounter; N39.0 Urinary tract infection, site not specified; I48.91 Unspecified atrial fibrillation; K74.60 Unspecified cirrhosis of liver; Z86.73 Personal history of transient ischemic attack (TIA), and cerebral infarction without residual deficits; Z87.891 Personal history of nicotine dependence; Z79.01 Long term (current) use of anticoagulants; Z79.899 Other long term (current) drug therapy
CPT/HCPCS: 51702; 81001; 99283-25

== ENCOUNTER 2024-09-19 09:23 | Emergency (ER) | payer MEDICARE, OTHER ==
[~2024-09-19] VITALS: Ht 172.7 cm; Wt 74.8 kg
[~2024-09-19 09:23] MED LIST changes: +MACROBID 100 M100 MG PO; +TRAZODONE HCL50 MG PO
[2024-09-19] MEDS ORDERED: LIDOCAINE 2% VISCOUS 6 ML SYR TOP ONE (09:45)
[2024-09-19 11:43] VITALS: BP 99/69
== END 2024-09-19 11:50 | disposition home or self-care (01) ==
LOC: ED 09:23
DX: T83.021A Displacement of indwelling urethral catheter, initial encounter (principal); T83.83XA Hemorrhage due to genitourinary prosthetic devices, implants and grafts, initial encounter; R33.9 Retention of urine, unspecified; I48.91 Unspecified atrial fibrillation; K74.60 Unspecified cirrhosis of liver; Z86.73 Personal history of transient ischemic attack (TIA), and cerebral infarction without residual deficits; Z87.891 Personal history of nicotine dependence; Z79.01 Long term (current) use of anticoagulants; Z79.899 Other long term (current) drug therapy
CPT/HCPCS: 51702; 99283

== ENCOUNTER 2024-10-08 16:16 | Emergency (ER) | payer MEDICARE, OTHER ==
[~2024-10-08] VITALS: Ht 172.7 cm; Wt 76.7 kg
[~2024-10-08 16:16] MED LIST changes: -VITAMIN D325 MC2 PO; +VITAMIN D375 MCG PO
--- OUTSIDE RECORDS SUMMARY | 2024-10-08 16:23 | XMS ---
PreManage Notification: MARIBELL FERNANDEZ Security Intellectual Property Manager Events No recent Security Events currently on file CRITERIA MET - [facility] - 2 Visits in 30 Days CARE PROVIDERS Mary Zhang Business Solution Analyst/Pharmacognosist 07/12/2024-Current PHONE: [phone] [facility]Current PHONE: Unknown -[facility]: Sales Specialist [facility] Bernardo PHONE: [phone] -Bernardo- Dentist: Sales Specialist [facility] PHONE: [phone] JAMIE SAEZ Nurse Practitioner: Family Current PH[facility]: [phone] [facility] Current PHONE: [phone] ROMEO DAUGHERTY Physician Assistant Jonah TRIPATHI PHONE: [phone] ALEX EMMANUEL Nurse Practitioner: Adult Health Current [place] PHONE: [phone] NAFISA [facility] Nursing [facility] Current PHONE: Unknown Azul has no Care Guidelines for this patient. [facility] VISIT COUNT (12 MO.) 6 TAYA Díaz TOTAL 6 NOTE: Visits indicate total known visits. ED/UCC VISIT TRACKING (12 MO.) 10/08/2024 16:17 [facility] [place] TYPE: Emergency COMPLAINT: - FEVER 09/19/2024 09:24 [facility] [place] TYPE: Emergency COMPLAINT: - CATHETER PROBLEM DIAGNOSES: - Displacement of indwelling urethral catheter, initial encounter - Hemorrhage due to genitourinary prosthetic devices, implants and grafts, initial encounter - care home (current) use of anticoagulants - Other regional intermodal truck driver (current) drug therapy - Personal history of nicotine dependence - Personal history of transient ischemic attack (TIA), and cerebral infarction without residual deficits - Retention of urine, unspecified - Unspecified atrial fibrillation - Unspecified cirrhosis of liver 08/04/2024 20:17 [facility] [place] TYPE: Emergency COMPLAINT: - GROIN PAIN DIAGNOSES: - Displacement of indwelling urethral catheter, initial encounter - Infection and inflammatory reaction due to indwelling urethral catheter, initial encounter - terminal makeup operator (current) use of anticoagulants - Other regional intermodal truck driver (current) drug therapy - Personal history of nicotine dependence - Personal history of transient ischemic attack (TIA), and cerebral infarction without residual deficits - Unspecified atrial fibrillation - Unspecified cirrhosis of liver - Urinary tract infection, site not specified 12/28/2023 20:16 [facility] [place] TYPE: Emergency COMPLAINT: - ALTERED LOC 11/24/2023 16:38 [facility] [place] TYPE: Emergency COMPLAINT: - CATHETER ISSUES DIAGNOSES: - Other mechanical complication of indwelling urethral catheter, initial encounter - Personal history of nicotine dependence 11/23/2023 09:10 [facility] [place] TYPE: Emergency COMPLAINT: - CATH PROBLEM DIAGNOSES: - Calculus of gallbladder without cholecystitis without obstruction - Depression, unspecified - Gross hematuria - Infection and inflammatory reaction due to indwelling urethral catheter, initial encounter - care home (current) use of anticoagulants - Other [facility] (current) drug therapy - Personal history of nicotine dependence - Unspecified atrial fibrillation - Urinary tract infection, site not specified INPATIENT VISIT TRACKING (12 MO.) 12/28/2023 20:17 [facility] [place] TYPE: Observation COMPLAINT: - AMS DIAGNOSES: - Altered mental status, unspecified - Chronic atrial fibrillation, unspecified - Do not resuscitate - terminal makeup operator (current) use of anticoagulants - Other [facility] (current) drug therapy - Personal history of nicotine dependence - Urinary tract infection, site not specified [email or web address]
[2024-10-08 16:41] LABS: BASOPHILS 0.2 % (0-2); HEMATOCRIT 38.4 % (35.0-50.0); LYMPHOCYTES 19.3 % (24-44); MCH 28.8 (27-36); MCV 84.8 fl (81-99); MONOCYTES 5.9 % (0-12); NEUTROPHILS 71.6 % (39-80); PLATELET COUNT 114 K/uL (140-440); RBC 4.52 M/ul (4.3-5.7); RDW 16.4 (10.5-15.0)
[2024-10-08] MEDS ORDERED: SODIUM CHLORIDE 0.9% 1,000 ML IV ONE (16:45)
[2024-10-08 16:54] LABS: ALBUMIN 3.9 g/dL (3.4-5.0); ALBUMIN/GLOBULIN RATIO 1.22 (1.1-2.4); ANION GAP 13.5 (7-21); BILIRUBIN, TOTAL 0.9 mg/dL (0.2-1.0); BUN/CREATININE RATIO 16.3 (6.0-28.6); CALCIUM 9.2 mg/dL (8.5-10.1); CREATININE, SERUM 0.92 mg/dL (0.70-1.30); POTASSIUM 4.5 mmol/L (3.5-5.1); PROTEIN, TOTAL 7.1 g/dL (6.4-8.2)
[2024-10-08 17:00] LABS: LACTIC ACID, BLOOD 1.4 mmol/L (0.4-2.0)
[2024-10-08] MEDS ORDERED: DILT-XR240 MG PO (18:14)
[2024-10-08] MEDS ORDERED: MANNOSE PO (18:17)
[2024-10-08] MEDS ORDERED: AZO D-MANNOSE500 MG PO (18:18)
[2024-10-08] MEDS ORDERED: METAMUCIL660 GM PO (18:22)
[2024-10-08] MEDS ORDERED: JUBLIA4 ML TOP (18:25)
[2024-10-08] MEDS ORDERED: COUGH DROPS1 EACH MM (18:26)
[2024-10-08 18:45] VITALS: BP 90/60
== END 2024-10-08 18:45 ==
LOC: ED 16:16
PROVIDERS: Emergency Medicine
DX: R53.1 Weakness (principal); G82.20 Paraplegia, unspecified; I48.91 Unspecified atrial fibrillation; K74.60 Unspecified cirrhosis of liver; Z87.891 Personal history of nicotine dependence; Z96.0 Presence of urogenital implants; Z86.73 Personal history of transient ischemic attack (TIA), and cerebral infarction without residual deficits; Z79.899 Other long term (current) drug therapy; Z74.8 Other problems related to care provider dependency
CPT/HCPCS: 36415; 71045; 80053; 83605; 85025; 99285-25; J7030

== ENCOUNTER 2024-11-09 06:30 | Emergency (ER) | payer MEDICARE, OTHER ==
[~2024-11-09] VITALS: Ht 172.7 cm; Wt 74.9 kg
[~2024-11-09 06:30] MED LIST changes: +AZO D-MANNOSE500 MG PO; +COUGH DROPS1 EACH MM; +DILT-XR240 MG PO; +MANNOSE PO; +METAMUCIL660 GM PO
[2024-11-09] MEDS ORDERED: ondansetron HCL 4 MG/2 ML VIAL IV ONE (06:45)
[2024-11-09] MEDS ORDERED: LACTATED RINGER'S 1,000 ML IV ONE (06:45)
[2024-11-09] MEDS ORDERED: FAMOTIDINE 20 MG/ 2 ML VIAL IV ONE (06:45)
[2024-11-09 06:52] LABS: EOSINOPHILS 1.8 % (0-6); HEMATOCRIT 35.9 % (35.0-50.0); HEMOGLOBIN 12.1 g/dL (12.0-18.0); MCH 28.2 (27-36); MCHC 33.8 g/dl (30-36); MCV 83.6 fl (81-99); MONOCYTES 0.7 % (0-12); NEUTROPHILS 78.5 % (39-80); PLATELET COUNT 127 K/uL (140-440); RDW 16.7 (10.5-15.0)
[2024-11-09] MEDS ORDERED: CEFTRIAXONE SODIUM 2 GM in SODIUM CHLORIDE 0.9% 100 ML IV ONE (07:00)
[2024-11-09] MEDS ORDERED: SODIUM CHLORIDE 0.9% 1,000 ML IV ONE (07:00)
[2024-11-09 07:02] LABS: INR 1.63 (0.80-1.30); PARTIAL THROMBOPLASTIN TIME 32.5 Sec (22.9-41.3); PROTIME 19.3 Sec (11.2-14.2)
[2024-11-09] MEDS ORDERED: CEFTRIAXONE SODIUM 2 GM VIAL ONE (07:09)
[2024-11-09 07:15] LABS: ALBUMIN 3.7 g/dL (3.4-5.0); ALBUMIN/GLOBULIN RATIO 1.19 (1.1-2.4); ANION GAP 15.5 (7-21); BILIRUBIN, TOTAL 1.2 mg/dL (0.2-1.0); BUN/CREATININE RATIO 10.28 (6.0-28.6); CALCIUM 9.4 mg/dL (8.5-10.1); CREATININE, SERUM 1.07 mg/dL (0.70-1.30); POTASSIUM 4.5 mmol/L (3.5-5.1); PROTEIN, TOTAL 6.8 g/dL (6.4-8.2)
[2024-11-09 07:25] LABS: LACTIC ACID, BLOOD 1.9 mmol/L (0.4-2.0)
[2024-11-09] MEDS ORDERED: LIDOCAINE 2% VISCOUS 6 ML SYR TOP ONE (07:45)
[2024-11-09 08:25] LABS: BILIRUBIN, URINE NEGATIVE (negative); BLOOD/HGB, URINE LARGE (Negative); KETONE, URINE NEGATIVE (Negative); LEUK ESTERASE, URINE MODERATE (negative); NITRITE, URINE POSITIVE (negative)
[2024-11-09 08:31] LABS: BACTERIA, URINE 1+ /hpf (negative); CASTS, URINE NONE SEEN \\lpf; COLLECTION TYPE, URINE CLEAN CATCH; CRYSTALS, URINE NONE SEEN (0-1+); EPITHELIAL CELLS, URINE 0 /lpf (0-1+); REFLEX CULTURE, URINE Yes (No); WHITE BLOOD CELLS, URINE 21-40 /HPF (0-5)
[2024-11-09 08:59] LABS: CORONAVIRUS COVID-19 AG NEGATIVE (NEGATIVE); INFLUENZA A AG NEGATIVE (NEGATIVE); INFLUENZA B AG NEGATIVE (NEGATIVE)
[2024-11-09 09:03] LABS: LACTIC ACID, BLOOD 1.5 mmol/L (0.4-2.0)
[2024-11-09] MEDS ORDERED: METOPROLOL SUCCINATE 50 MG TABCR PO ONE (10:45)
[2024-11-09] MEDS ORDERED: dilTIAZem HCL 240 MG CAPCR PO ONE (10:45)
[2024-11-09] MEDS ORDERED: dilTIAZem HCL 25 MG/5 ML VIAL IV SCH (10:45)
[2024-11-09] MEDS ORDERED: CEPHALEXIN500 M1 PO (12:46)
[2024-11-09] MEDS ORDERED: CEPHALEXIN MONOHYDRATE 500 MG CAP PO ONE (13:00)
[2024-11-09 14:25] VITALS: BP 96/70
--- NOTE | 2024-11-10 12:14 | EKG ---
[facility] [address] [facility] [place] [address] Signed Atrial flutter with variable AV block ST \T\ T wave abnormality, consider anterolateral ischemia Abnormal ECG When compared with ECG of 28-DEC-2023 20:52, Atrial flutter has replaced Atrial fibrillation Vent. rate has increased BY [address] now depressed in Lateral leads T wave inversion now evident in Inferior leads T wave inversion now evident in Anterolateral leads Confirmed by Ángel Erickson DO ([id number]) on 11/10/2024 12:14:34 PM Electronically Signed By: ÁNGEL ERICKSON DO 11/10/24 1214 PATIENT NAME: MARIBELL FERNANDEZ Electrocardiogram DATE OF : 52 PHYSICIAN: ÁNGEL ERICKSON DO REPORT #: [id number] REPORT IS CONFIDENTIAL AND NOT TO BE RELEASED WITHOUT AUTHORIZATION
== END 2024-11-09 14:50 | disposition home or self-care (01) ==
LOC: ED 06:30
PROVIDERS: Internal Medicine
DX: R10.9 Unspecified abdominal pain (principal); R41.82 Altered mental status, unspecified; I48.20 Chronic atrial fibrillation, unspecified; Z46.6 Encounter for fitting and adjustment of urinary device; Z87.891 Personal history of nicotine dependence
CPT/HCPCS: 36415; 51702; 70450; 74177; 80053; 81001; 83605; 83690; 83735; 83880; 84484; 85025; 85610; 85730; 87040; 87088; 87186; 93005; 93010; 99284-25; A4311; J0696; J2405; J7030; Q9967

== ENCOUNTER 2025-02-22 06:55 | Day surgery (SDC) | payer MEDICARE, OTHER ==
[~2025-02-22] VITALS: Ht 170.2 cm; Wt 70.0 kg
[~2025-02-22 06:55] MED LIST changes: +CEPHALEXIN500 M1 PO; +LACTATED RINGER'S 1,000 ML IV SCH
[2025-02-22] MEDS ORDERED: CEFAZOLIN SODIUM 2 GM/20 ML SYR IV SCH (07:00)
[2025-02-22] MEDS ORDERED: LIDOCAINE HCL 1% 5 ML SDV INJ ONE (07:00)
[2025-02-22] MEDS ORDERED: IBLOOD GLUCOSE TEST STRIP 1 EA TEST VI PRN (07:00)
[2025-02-22 07:19] VITALS: BP 118/74
--- NOTE | 2025-02-22 07:25 | NUR ---
PT NOT AVAILABLE FOR VISIT. PROVIDED PRAYER.
[2025-02-22] MEDS ORDERED: MORPHINE SULFATE 4 MG/ML VIAL IV PRN (08:00)
[2025-02-22] MEDS ORDERED: OXYCODONE/APAP 5/325 TAB PO PRN (08:00)
[2025-02-22] MEDS ORDERED: TRANEXAMIC ACID 1,000 MG/10 ML AMP ONE (09:09)
--- NOTE | 2025-02-22 10:20 | NUR ---
PT ARRIVES TO DS DEPT FROM PACU VIA STRETCHER. PT REPORTS NO PAIN OR NAUSEA AT THIS TIME. DRESSING VISUALIZED W/JOSE BARRERA. REPORT RECEIVED FROM JOSE BARRERA. PUDDING, ICE WATER, AND CRACKERS PROVIDED, PT TOLERATING WITHOUT DIFFICULTY SWALLOWING. FAMILY AND ELECTRIC CLOCK MECHANIC RETRIEVED FROM [facility].
[2025-02-22 10:22] VITALS: BP 113/65
--- NOTE | 2025-02-22 10:54 | NUR ---
02/22/25 1054 Chelsie Figueroa 0945- PT PRESENTS TO PACU, SUPINE POSITION WITH LMA IN PLACE. REACTIVE TO TACTILE STIMULUS. BREATHING EVEN AND NON LABORED. O2 AT 6L PER MASK, LR INFUSING TO RW IV. ABD SOFT, NON DISTENDED. DRESSING AROUND SUPRAPUBIC WITH SMALL AMOUNT OF SEROSANGINOUS DRAINAGE. ALL MONITORS IN PLACE. 0946- PT REACTIVE TO LMA IN PLACE, FOLLOWS COMMANDS TO OPEN MOUTH AND REMOVED AT THIS TIME. 0950- PT HAVING INTERMITTENT APNEA, TAKES DEEP BREATH WITH TACTILE STIMULUS. FALLS BACK TO SLEEP. 0955- PT WAKES TO VERBAL STIMULI, VERY HARD OF HEARING. FOLLOWS COMMANDS TO DEEP BREATH, NO PAIN OR NAUSEA, ONLY COMPLAINT OF ITCHING. 0957- PT MOVED TO ROOM AIR DUE TO ITCHING FROM MASK, WILL CONTINUE TO MONITOR. 1005- PT C/O CONTINUED ITCHING TO BACK, LEFT ARM, BACK OF HEAD AND FACE. SHARON RAMIRES NOTIFIED, AT THIS TIME WILL MONITOR. NO RASH NOTED. 1009- HEAD OF BED ELEVATED, PT TAKING DRINKS OF ICE WATER TOLERATING WELL. RED URINE DRAINING IN CATHETER BUT GETTING PATTERN DRUM MAKER. 1020- PT TAKEN BACK TO DAY SURGERY FOR MONITORING OF URINE CLEARING AND ITCHING RESOLVING. PT SITTING UP CONVERSING WITH STAFF. IV SALINE LOCKED. NO SIGNS OF DISTRESS. REPORT TO MERVIN BARRERA AT BEDSIDE, CARE OF PT TURNED OVER AT THIS TIME.
--- NOTE | 2025-02-22 11:10 | NUR ---
IN PT ROOM FOR ASSESSMENT AND VS. PT REPORTS NO PAIN OR NAUSEA. DRESSING CHANGED AND VISUALIZED BY TIMBER REPAIRER AND , ADDITIONAL SUPPLIES PROVIDED IF DRAINAGE OCCURS. THIS RN AND RENETTA RN ASSIST WITH DRESSING PATIENT. BRIEF PROVIDED. DC EDUCATION PROVIDED AND PT AND TIMBER REPAIRER STATE VERBAL UNDERSTANDING AT THIS TIME. CATHETER CONTINUES TO DRAIN TO GRAVITY RED, CLEAR FLUID W/NO CLOTS PRESENT IN LINE OR BAG.
[2025-02-22 11:38] VITALS: BP 115/57
--- NOTE | 2025-02-22 11:40 | NUR ---
PT OFF OF UNIT VIA PERSONAL WC BY AND SALES AND SERVICE ENGINEER TO TRANPSORTATION FROM [facility]. THEY REPORT NO FURTHER NEEDS OR QUESTIONS AT THIS TIME. ALL BELONGINGS IN PT POSSESSION AND ADDITIONAL SUPPLIES IN HAND.
[2025-02-24] MEDS ORDERED: TRAMADOL HCL50 MG PO (07:51)
[2025-02-24] MEDS ORDERED: DULOXETINE HCL60 MG PO (07:54)
[2025-02-24] MEDS ORDERED: TIZANIDINE HCL2 MG PO (08:14)
[2025-02-24] MEDS ORDERED: CEPHALEXIN500 MG PO (08:24)
[2025-02-24] MEDS ORDERED: NYSTATIN15 GM TOP (16:44)
== END 2025-02-22 11:40 | disposition home or self-care (01) ==
LOC: DS 06:55 → OPS 06:55 → DS 08:50 → OPS 08:50 → DS 11:05 → OPS 11:40
PROVIDERS: ATTEND Urology
PROC: 0TJB8ZZ Inspection of Bladder, Via Natural or Artificial Opening Endoscopic (ICD-10-PCS; principal; 2025-02-22 08:50)
PROC: 0T9B00Z Drainage of Bladder with Drainage Device, Open Approach (ICD-10-PCS; 2025-02-22 08:50)
DX: R33.9 Retention of urine, unspecified (principal); N36.8 Other specified disorders of urethra; N32.89 Other specified disorders of bladder; N31.9 Neuromuscular dysfunction of bladder, unspecified; I69.354 Hemiplegia and hemiparesis following cerebral infarction affecting left non-dominant side; I48.91 Unspecified atrial fibrillation; Z87.891 Personal history of nicotine dependence; Z79.01 Long term (current) use of anticoagulants; Z79.899 Other long term (current) drug therapy; Z88.8 Allergy status to other drugs, medicaments and biological substances
CPT/HCPCS: 00860; J0690; J2704; J3010; J7121